=== PATIENT | male | born 1985 | race Caucasian/White ===

== ENCOUNTER 2016-05-26 09:16 | Observation (INO) | payer OTHER ==
[2016-05-26] VITALS (26 sets, daily range): BP systolic 85–117; BP diastolic 51–87; PULSE 76–104; RESP 12–24; TEMP 97.8–97.9; O2SAT 95–100; Ht 182.9 cm; Wt 72.4 kg
[~2016-05-26] VITALS: Ht 182.9 cm; Wt 72.4 kg
[~2016-05-26 09:16] MED LIST: AMOX500T2 PO; BUSP7.5T7 PO; ESCI20TA PO; HYDR25TA85 PO; SULF1TAB42 PO
--- OUTSIDE RECORDS SUMMARY | 2016-05-26 09:19 | XMS REPORT | Continuity of Care Document ---
Author Author [facility] Organization [facility] Address Unknown Phone Unavailable Support Name Relationship Address Phone ERNESTO HAINES MD Caregiver [address] [address] Unavailable GREG STEVENS MD Caregiver [address] [place] [address] Unavailable MARTHAWINIFRED Yanez Next Of Kin [address] [place] [address] C Insurance Providers Guarantor Doc Thomas Address [address] [place] [id number] C Email [id number] Payer [employer] Ppo/Open Choice Policy Number [id number] Subscriber's Name Doc Thomas Relationship 01 Spouse Group Number [id number] Advance Directives Directive Response Recorded Date/Time Advanced Directives Type None 03/05/16 10:07am Chief Complaint and Reason for Visit Chief Complaint Psychiatric Problems Reason for Visit 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 abuse [id number] Problems Active Problems Medical Problem Onset Date Status PHARYNGITIS Unknown Acute Past Problems Medical Problem Onset Date Dehydration, mild Unknown Drug-induced psychotic disorder with delusions Unknown Methamphetamine abuse Unknown PHARYNGITIS Unknown PHARYNGITIS Unknown Vertigo, benign positional Unknown Medications Current Home Medications Medication Dose Units Route Directions Days Qty Instructions Start Date Amoxicillin 500 Mg Tablet 500 Mg Oral Three Times A Day 10 Days Buspirone Hcl 7.5 Mg Tablet 7.5 Mg Oral Twice A Day 03/05/16 Escitalopram Oxalate (Lexapro) 20 Mg Tablet 20 Mg Oral Daily Hydroxyzine Hcl 25 Mg Tablet 25 Mg Oral 3-4 Times Daily as needed for Anxiety 03/05/16 Sulfamethoxazole/Trimethoprim (Bactrim Ds Tablet) 1 Each Tablet 1 Tab Oral Daily 03/05/16 Social History Social History Problem Response Recorded Date/Time Onset Date Status Chewing Tobacco Status No 03/05/2016 10:48am Not Applicable Not Applicable Hx Substance Use Y COCAINE AND METH 03/05/2016 10:48am Not Applicable Not Applicable Hx Alcohol Use No 03/05/2016 10:48am Not Applicable Not Applicable Query Response Start Date Stop Date Smoking Status Current every day smoker Hospital Discharge Instructions No hospital discharge instructions. Plan of Care Discharge Date 03/05/16 1:10pm Disposition 65 TO PSYCH HOSP/UNIT Condition at Discharge Stable Instructions/Education Provided Drug Abuse and Drug Addiction Prescriptions See Medication Section Referrals ERNESTO HAINES MD Address: [address] [place] [address] [place] [address] Functional Status No functional status results. Allergies, Adverse Reactions, Alerts No known allergies. Immunizations Query Response on File Recorded Date/Time Hx Influenza Vaccination No 02/20/13 2:40pm Hx Influenza Vaccination No 02/20/13 2:40pm Vital Signs Acute Vital Signs Vital Response Date/Time Temperature (Fahrenheit) 99.9 deg F (96.8 - 99.1) 03/05/2016 1:00pm Temperature (Calculated Celsius) 37.18175 degrees C (36.0 - 37.3) 03/05/2016 1:00pm Pulse Rate (adult) 112 bpm (60 - 100) 03/05/2016 1:00pm Respiratory Rate 20 breaths/min (10 - 20) 03/05/2016 1:00pm O2 Sat by Pulse Oximetry 97 % (90 - 100) 03/05/2016 1:00pm Blood Pressure 122/68 mm Hg 03/05/2016 1:00pm Height (Feet) 5 feet 03/05/2016 10:07am Height (Inches) 11.00 inches 03/05/2016 10:07am Weight (Kilograms) 74.500 kg 03/05/2016 10:07am Body Mass Index (BMI) 22.0 03/05/2016 10:07am Results Laboratory Results Test Name Result Units Flags Reference Collection Date/Time Result Date/ Time Comments White Blood Count 22.4 T/MM3 H 4.5-11.0 03/05/2016 10:54am 03/05/2016 11 :13am Red Blood Count 4.22 M/MM3 L 4.50-5.90 03/05/2016 10:54am 03/05/2016 11: 13am Hemoglobin 13.3 GM/DL L 13.5-17.5 03/05/2016 10:54am 03/05/2016 11:13am Hematocrit 39.2 % L 41-53 03/05/2016 10:54am 03/05/2016 11:13am Mean Corpuscular Volume 92.9 UM3 80-100 03/05/2016 10:54am 03/05/2016 11:13am Mean Corpuscular Hemoglobin 31.5 UUG 26-34 03/05/2016 10:54am 2016 11:13am Mean Corpuscular Hemoglobin Concent 33.9 GM/DL 31-37 03/05/2016 10:54am 03/05/2016 11:13am RDW Standard Deviation 40.5 FL 36.9-50.2 03/05/2016 10:54am 03/05/2016 11:13am Platelet Count 277 T/MM3 130-400 03/05/2016 10:54am 03/05/2016 11:13am Mean Platelet Volume 10.1 UM3 9.4-12.4 03/05/2016 10:54am 03/05/2016 11 :13am Neutrophils % (Manual) 78.0 % H 33-66 03/05/2016 10:54am 03/05/2016 11: 32am Band Neutrophils % 5.0 % 0-6 03/05/2016 10:54am 03/05/2016 11:32am Lymphocytes % (Manual) 9.0 % L 23-45 03/05/2016 10:54am 03/05/2016 11: 32am Monocytes % (Manual) 6.0 % 0-9.0 03/05/2016 10:54am 03/05/2016 11:32am Reactive Lymphocytes % 2.0 % H 0-0 03/05/2016 10:54am 03/05/2016 11: 32am Band Neutrophils # 1.1 T/MM3 03/05/2016 10:54am 03/05/2016 11:32am Absolute Neutrophils (Manual) 17.5 T/MM3 H 1.8-7.7 03/05/2016 10:54am 11:32am Lymphocytes # (Manual) 2.0 T/MM3 1-4.8 03/05/2016 10:54am 03/05/2016 11 :32am Monocytes # (Manual) 1.3 T/MM3 H 0-0.8 03/05/2016 10:54am 03/05/2016 11: 32am Reactive Lymphocytes # 0.4 T/MM3 H 0-0 03/05/2016 10:54am 03/05/2016 11: 32am Red Cell Morphology Comment NORMAL 03/05/2016 10:54am 03/05/2016 11 :32am Icterus Index < 2 0-7 03/05/2016 10:54am 03/05/2016 11:11am Chemistry Specimen Hemolysis < 15 0-25 03/05/2016 10:54am 03/05/2016 11:11am 0-25: Specimen Exhibited No Hemolysis. Turbidity < 20 0-20 03/05/2016 10:54am 03/05/2016 11:11am Sodium Level 141 MEQ/L 134-144 03/05/2016 10:54am 03/05/2016 11:16am Potassium Level 3.5 MEQ/L L 3.6-5 03/05/2016 10:54am 03/05/2016 11:16am Chloride Level 103 MEQ/L 98-107 03/05/2016 10:54am 03/05/2016 11:16am Carbon Dioxide Level 27 MEQ/L 22-30 03/05/2016 10:54am 03/05/2016 11: 16am Anion Gap 11 MEQ/L 5-15 03/05/2016 10:54am 03/05/2016 11:16am Blood Urea Nitrogen 14.0 MG/DL 9-20 03/05/2016 10:54am 03/05/2016 11: 16am Creatinine 0.8 MG/DL 0.8-1.5 03/05/2016 10:54am 03/05/2016 11:16am BUN/Creatinine Ratio 18 RATIO 6-26 03/05/2016 10:54am 03/05/2016 11: 16am Glomerular Filtration Rate Calc 112 03/05/2016 10:54am 03/05/2016 11:16am Glucose Level 119 MG/DL H 75-110 03/05/2016 10:54am 03/05/2016 11:16am Calculated Osmolality 273 MOSM/KG 261-280 03/05/2016 10:54am 2016 11:16am Calcium Level 9.5 MG/DL 8.4-10.2 03/05/2016 10:54am 03/05/2016 11:16am Total Bilirubin 0.50 MG/DL 0.20-1.30 03/05/2016 10:54am 03/05/2016 11: 16am Alkaline Phosphatase 69 U/L 38-126 03/05/2016 10:54am 03/05/2016 11: 16am Total Protein 7.2 G/DL 6.3-8.2 03/05/2016 10:54am 03/05/2016 11:16am Albumin 4.1 G/DL 3.5-5.0 03/05/2016 10:54am 03/05/2016 11:16am Globulin 3.1 G/DL 2.4-3.6 03/05/2016 10:54am 03/05/2016 11:16am Albumin/Globulin Ratio 1.3 RATIO 1.1-2.2 03/05/2016 10:54am 03/05/2016 11:16am Aspartate Amino Transf (AST/SGOT) 15 U/L L 17-59 03/05/2016 10:54am 11:16am Alanine Aminotransferase (ALT/SGPT) 23 U/L 21-72 03/05/2016 10:54am 11:16am Acetaminophen Level < 10 UG/ML L 10-30 03/05/2016 10:54am 03/05/2016 11: 16am TOXIC <4 HR POST INGESTION: >150 MG/L; TOXIC <12 HR POST INGESTION: >50 MG/L Salicylates Level < 1.0 MG/DL L 2-20 03/05/2016 10:54am 03/05/2016 11: 16am Alcohol, Quantitative <10 MG/DL <10 03/05/2016 10:54am 03/05/2016 11: 16am Thyroid Stimulating Hormone (TSH) 0.24 MIU/L L 0.47-4.68 03/05/2016 10: 54am 03/05/2016 12:12pm Influenza Type A Antigen NEGATIVE NEGATIVE 03/05/2016 10:55am 2016 11:28am Negative for Flu A protein antigen. Assay sensitivity is 90%. Influenza Type B Antigen NEGATIVE NEGATIVE 03/05/2016 10:55am 2016 11:28am Negative for Flu B protein antigen. Assay sensitivity is 90%. Urine Collection Type VOIDED-NOT CC-MIDSTR 03/05/2016 11:00am 03/05 11:12am Urine Color YELLOW YELLOW 03/05/2016 11:00am 03/05/2016 11:12am Urine Turbidity CLEAR CLEAR 03/05/2016 11:00am 03/05/2016 11:12am Urine Specific [place] 1.025 1.015-1.025 03/05/2016 11:00am 2016 11:12am Urine pH 6.5 5.0-8.0 03/05/2016 11:00am 03/05/2016 11:12am Urine Leukocyte Esterase NEGATIVE NEGATIVE 03/05/2016 11:00am 2016 11:12am Urine Nitrite NEGATIVE NEGATIVE 03/05/2016 11:00am 03/05/2016 11: 12am Urine Protein TRACE A NEGATIVE 03/05/2016 11:00am 03/05/2016 11:12am Urine Glucose (UA) NEGATIVE NEGATIVE 03/05/2016 11:00am 03/05/2016 11 :12am Urine Ketones 3+ A NEGATIVE 03/05/2016 11:00am 03/05/2016 11:12am Urine Urobilinogen 0.2 EU/DL NORMAL 03/05/2016 11:00am 03/05/2016 11: 12am Urine Bilirubin 1+ A NEGATIVE 03/05/2016 11:00am 03/05/2016 11:12am Urine Blood TRACE-INTACT A NEGATIVE 03/05/2016 11:00am 03/05/2016 11: 12am Urinalysis Comment MICROSCOPIC NOT IND. 03/05/2016 11:00am 2016 11:12am Procedures No known history of procedures. Encounters Encounter Location Arrival/Admit Date Discharge/Depart Date Attending Provider Departed Emergency Room [facility] 03/05/16 10:05am 03/05/16 1: 10pm GREG STEVENS MD Recent Diagnosis
--- OUTSIDE RECORDS SUMMARY | 2016-05-26 09:19 | XMS REPORT | Continuity of Care Document ---
Author Author [facility] Organization [facility] Address Unknown Phone Unavailable Allergies Medications Problems Procedures Results Test Result Range CBC - 04/29/16 06:45 Hemoglobin-Blood 15.2 g-dL 11.00 - 18.00 Hematocrit-Blood 46.1 % 35.0 - 55.0 Leukocytes [count] 10.90 [id number] 4.00 - 11.00 Erythrocytes [count] 4.90 r98-6-pyA 4.00 - 6.20 Erythrocyte MCV 94.1 fL 80 - 100 Erythrocyte MCH 31.0 pg 26.0 - 34.0 Erythrocyte MCHC 33.0 g/dL 32.0 - 36.0 RDW-CV 12.6 % 10.5 - 14.0 Platelets 331 [id number] 150.00 - 400.00 MPV 10.3 fL 8.50 - 11.50 Neutrophils [Pct] 45.6 % 50 - 80 Lymphocytes [Pct] 44.1 % 25 - 50 Monocytes [Pct] 7.8 % 2 - 12 Eosinophils [Pct] 2.2 % 0 - 5 Basophils [Pct] 0.3 % 0 - 2 [place] Profile - 04/29/16 06:45 Sodium 142 mmol/L 135 - 152 Potassium 4.38 mmol/L 3.5 - 5.3 Chloride 100.8 mmol/L 100 - 116 Carbon Dioxide 29 mmol/L 18 - 29 Glucose 99 mg/dL 70 - 110 Urea Nitrogen (BUN) 15 mg/dL 7 - 25 Creatinine 0.74 mg/dL 0.6 - 1.3 Calcium 9.8 mg/dL 8.60 - 10.30 Albumin 4.5 g/dL 3.40 - 4.20 Protein, Total 7.7 g/dL 5.00 - 12.00 AST-Serum 14 IU/L 10.00 - 45.00 ALT-Serum 13 IU/L 10.00 - 25.00 Bilirubin,Total 0.3 mg/dL 0.30 - 1.00 Alkaline Phosphatase 82 IU/L 53.00 - 128.00 Total Cholesterol-Serum 155 mg/dL 136 - 200 Triglycerides 118 mg/dL 10.00 - 200.00 AGE (yrs) 31 NRG GGT 21 IU/L 9.00 - 64.00 Lactate Dehydrogenase (LDH) 124 IU/L 91 - 270 Phosphorus 3.8 mg/dL 2.50 - 5.00 Uric Acid 5.3 mg/dL 3.30 - 8.70 eGFR/1.73 sq M, black female 109 UNIT NRG eGFR/1.73 sq M, black male 147 UNIT NRG eGFR/1.73 sq M, white female 90 UNIT NRG eGFR/1.73 sq M, white male 122 UNIT NRG Urine Dipstick - 04/29/16 06:45 Color of Urine Yellow Straw,Yellow Clarity of Urine Clear Clear Specific gravity of Urine 1.015 1.005- 1.030 pH of Urine by Test strip 5.5 Normal 5 - 8 Protein, Test Strip-Urine Negative Negative Glucose Strip Test-Urine Negative Negative Leukocyte esterase [Qual] Negative Negative Ketones Strip Test-Serum Negative Negative Bilirubin [Qual] Negative Negative Urobilinogen- Urine Dipstick 0.2 E.U./dL <0.2,0.2 Red Blood Cells-Urine Dipstick Negative Negative Nitrite [Qual] Negative Negative Drugs of abuse 8 panel-Urine - 04/29/16 06:45 Amphetamines, Quantitative-Urine Positive Negative Barbiturates, Quantitative-Urine Negative Negative Benzodiazepines, Qualitative-Urine Negative Negative Tetrahydrocannabinol [Qual] Negative Negative Cocaine w/ Metabolites, Quantitative-Urine Negative Negative Alcohol (Ethanol), Quantitative-Urine Negative Negative Opiates, Quantitative-Urine Negative Negative Phencyclidine, Quantitative-Urine Negative Negative Encounters ACCT No. Visit Date/Time Discharge Status Pt. Type Provider Facility Loc./Unit Complaint [id number] 04/29/2016 13:00:00 04/29/2016 21:00:00 DIS BRANDON GRASIA [facility] OT [id number] 04/29/2016 07:22:00 04/29/2016 08:22:00 DIS DILIP CHÁVEZ [facility] OT
[2016-05-26] MEDS ORDERED: MECL-103 PO (09:23)
[2016-05-26] MEDS ORDERED: ARIP5TAB10 PO (09:23)
--- OUTSIDE RECORDS SUMMARY | 2016-05-26 09:30 | XMS REPORT | Continuity of Care Document ---
Author Author [facility] Organization [facility] Address Unknown Phone Unavailable Allergies Medications Problems Procedures Results Test Result Range CBC - 04/29/16 06:45 Hemoglobin-Blood 15.2 g-dL 11.00 - 18.00 Hematocrit-Blood 46.1 % 35.0 - 55.0 Leukocytes [count] 10.90 [id number] 4.00 - 11.00 Erythrocytes [count] 4.90 [id number] 4.00 - 6.20 Erythrocyte MCV 94.1 fL 80 - 100 Erythrocyte MCH 31.0 pg 26.0 - 34.0 Erythrocyte MCHC 33.0 g/dL 32.0 - 36.0 RDW-CV 12.6 % 10.5 - 14.0 Platelets 331 [id number] 150.00 - 400.00 MPV 10.3 fL 8.50 [...] Status Pt. Type Provider Facility Loc./Unit Complaint [id number] 04/29/2016 13:00:00 04/29/2016 21:00:00 DIS BRANDON GARSIA [facility] OT [id number] 04/29/2016 07:22:00 04/29/2016 08:22:00 DIS DILIP CHÁVEZ [facility] OT
--- NOTE | 2016-05-26 09:38 | NUR ---
PROVIDER DR HOOK AT BEDSIDE FOR H&P
[2016-05-26 09:40] LABS: BASOPHILS % (AUTO) 0.3 % (0-2); EOSINOPHILS # (AUTO) 0.2 T/MM3 (0-0.5); EOSINOPHILS % (AUTO) 1.6 % (0-4); HCT - HEMATOCRIT 40.1 % (41-53); HGB - HEMOGLOBIN 13.5 GM/DL (13.5-17.5); IMMATURE GRANULOCYTE # (AUTO) 0.02 T/MM3 (0.00-0.03); IMMATURE GRANULOCYTE % (AUTO) 0.2 % (0.0-0.5); LYMPHOCYTES # (AUTO) 3.8 T/MM3 (1-4.8); LYMPHOCYTES % (AUTO) 39.6 % (23-45); MEAN CORPUSCULAR HGB CONC(MCHC 33.7 GM/DL (31-37); MEAN PLATELET VOLUME 9.6 UM3 (9.4-12.4); MONOCYTES # (AUTO) 0.7 T/MM3 (0-0.8); MONOCYTES % (AUTO) 7.2 % (0-9.0); NEUTROPHILS #(AUTO)-ABSOLUTE 4.9 T/MM3 (1.8-7.7); NEUTROPHILS % (AUTO) 51.1 % (33-66); RED BLOOD COUNT 4.22 M/MM3 (4.50-5.90); WBC - WHITE BLOOD COUNT 9.5 T/MM3 (4.5-11.0)
--- NOTE | 2016-05-26 09:45 | NUR ---
POISON CONTROL [facility] MAURITIAN POISON CONTROL CONTACTED Addendum: 05/26/16 at 0950 by [email or web address] CAIN PAREKH
[2016-05-26 09:53] LABS: ACETAMINOPHEN < 10 UG/ML (10-30); ALBUMIN/GLOBULIN RATIO 1.4 RATIO (1.1-2.2); ALKALINE PHOSPHATASE 65 U/L (38-126); ALT (SGPT) 27 U/L (21-72); ANION GAP 11 MEQ/L (5-15); AST (SGOT) 15 U/L (17-59); BUN/CREATININE RATIO 12 RATIO (6-26); CALCIUM 9.5 MG/DL (8.4-10.2); CHLORIDE 106 MEQ/L (98-107); CO2 - CARBON DIOXIDE 27 MEQ/L (22-30); CREATININE 0.9 MG/DL (0.8-1.5); ETHANOL <10 MG/DL (<10); GLOMERULAR FILTRATION RATE 97; GLUCOSE 135 MG/DL (75-110); POTASSIUM 3.4 MEQ/L (3.6-5); SALICYLATE < 1.0 MG/DL (2-20); SODIUM 144 MEQ/L (134-144); TOTAL PROTEIN 6.9 G/DL (6.3-8.2)
--- NOTE | 2016-05-26 10:06 | ERPDOC ---
Departure Disposition Decision Date: May 26, 2016 Disposition Decision Time: 10:50 Disposition: 02 TO [facility] Impression Impression Impression: Primary Impression: Methamphetamine abuse Additional Impressions: Suicide attempt Depression Depression Type: major depressive disorder Major depression recurrence: recurrent Active/Remission status: currently active Major depression episode severity: severe Psychotic features: without psychotic features Qualified Codes: F33.2 - Major depressive disorder, recurrent severe without psychotic features Severity: Severe Condition: Improved Seen By: Physician only Referrals: ERNESTO HAINES MD (Family) Problems/Meds/Labs Reviewed?: Yes Medications reviewed and manag: Yes Follow up care ordered?: Yes Mental Status: Alert, Oriented HPI - General Medical General Chief Complaint: Suicide Ideation/Attempt Stated Complaint: OVERDOSE Time Seen by Provider: 09:20 Source: patient, family, police HPI - General Medical Initial Comments 31-year-old male presents to the emergency department following a suicide attempt earlier today. At approximately 8:50 AM the patient took 20 of his 5 mg Abilify tablets along with 20 of his 25 mg meclizine tablets. Patient denies any pain or discomfort. Patient presents to the emergency department via EMS. He should was given activated charcoal by EMS in the field. Patient is currently asymptomatic other than slightly tired. Patient denies any other complaints or associated symptoms. Patient was at home when the symptoms began. Symptoms have been persistent in nature since onset. Patient denies any other complaints or associated symptoms. Patient states that the reason behind the suicide attempt was that his has filed for divorce. He denies homicidal ideation or plan. He denies any other form of self harm or self injury. Occurred At: home Onset: Rapid Allergies: Coded Allergies: No Known Allergies (Unverified , 05/26/16) Past History Past Medical History Respiratory: asthma Male: kidney stones Psychological: drug abuse Surgical History General: appendix Joint: shoulder Family History Family PMH: FOUND: cancer Vaccines Hx Influenza Vaccination: No Social History # of Packs/Tins per Day: 2.0 # of Years: 18 Second Hand Exposure: Yes Substance Use Type: does not use Alcohol Intake: none Review of Systems Constitutional Constitutional: DENIES: chills, fever Eyes General: DENIES: erythema, pain Lids/Accessories: DENIES: erythema, swelling Vision: DENIES: acuity, blurring ENMT Ears: DENIES: drainage, pain Hearing: DENIES: hearing loss Balance: DENIES: ataxia, falling to one side Sinuses: DENIES: congestion, pain Nose: DENIES: nosebleeds, pain Mouth/Throat: DENIES: painful swallowing, sore throat Teeth: DENIES: pain Jaw: DENIES: pain Cardiovascular Cardiac: DENIES: chest pain, dyspnea on exertion Rhythm/Rate: DENIES: irregular beat, palpitations Vascular: DENIES: pedal edema, unilateral swelling Pulmonary Respiratory: DENIES: cough, dyspnea, pleuritic chest pain, sputum GI Upper Abdomen: DENIES: nausea, pain, vomiting Lower Abdomen: DENIES: diarrhea, pain General: DENIES: dysuria, pain Musculoskeletal General: DENIES: cramps, pain Integumentary Skin: DENIES: itching, rash Neurological General: DENIES: headache, numbness, weakness Psychiatric Psychiatric: depression, emotional instability, suicidal ideation/attempt Endocrine Endocrine: DENIES: polydipsia, polyphagia Hematologic/Lymphatic Hematologic/Lymphatic: DENIES: frequent nosebleeds, lymphadenopathy Allergic/Immunological Allergic/Immunoligical: DENIES: allergic reactions, hives Physical Exam General General Nourishment: well nourished, well developed, appears stated age, no acute distress, adult General Body Habitus: well groomed Vitals and Pain First Documented Vital Signs Date Time Temp Pulse Resp B/P Pulse Ox O2 Delivery O2 Flow Rate FiO2 05/26/16 09:18 97.8 86 20 124/81 100 Room Air Weight: Kilograms: 73.200 Height (feet): 5 Height (inches): 11.00 Triage Pain Scale: RN VS reviewed by Provider: Yes Normal Exams: Head: Normocephalic w/o trauma Eyes: Pupils are PERRLA w/ EOMI, No scleral icterus, irritation, or foreign bodies noted ENMT: No facial trauma, nasal exudates, pharyngeal erythema, or exudates are noted Dental: No fractured, loose, or missing teeth noted Neck: Full range of motion, without adenopathy, JVD, bruits or thyromegaly Chest/Resp: Clear all sutton, with good airflow, and symmetry bilaterally CV: Regular rate and rhythm, without murmur or gallop, Pulses 2+ all extremities, capillary refill, <2 seconds all ext., no pedal edema noted Abdomen: Bowel sounds positive, soft, non-tender, non-distended, no hepatosplenomegaly, masses or bruits noted Lymphatic: No lymphadenopathy, or lymphedema noted Musculoskeletal: No tenderness, or deformity noted, good range of motion, all extremities Integumentary: No rashes, hives, or bruising noted, hair and nails, without abnormality Neurologic: Patient is alert, and oriented, cranial nerves, motor/sensory/ cerebellar, exams w/o gross deficits, to observation Psychiatric: Patient exhibits, appropriate attention, emotion and affect Differential Diagnoses Considering: Alcohol Intoxication, Depression, Drug Overdose, Metabolic Progress Results/Orders Orders Procedure Category Date Status Time Cbc W/Auto LAB 05/26/16 Complete Diff-Reflex Manual Cmp - Comprehensive LAB 05/26/16 Complete Metabolic Ethanol LAB 05/26/16 Complete Salicylate LAB 05/26/16 Complete Acetaminophen LAB 05/26/16 Complete Ua, Dip Wreflex LAB 05/26/16 Complete [employer] Management Specialist 09:21 Drug Screen LAB 05/26/16 Complete Urine-Test At [facility] 09:21 EKG EKG 05/26/16 Taken Lab Results Laboratory Tests Test 05/26/16 09:35 White Blood Count 9.5T/MM3 Red Blood Count 4.22M/MM3 Hemoglobin 13.5GM/DL Hematocrit 40.1% Mean Corpuscular Volume 95.0UM3 Mean Corpuscular Hemoglobin 32.0UUG Mean Corpuscular Hemoglobin Concent 33.7GM/DL RDW Standard Deviation 43.0FL Platelet Count 275T/MM3 Mean Platelet Volume 9.6UM3 Immature Granulocyte % (Auto) 0.2% Neutrophils (%) (Auto) 51.1% Lymphocytes (%) (Auto) 39.6% Monocytes (%) (Auto) 7.2% Eosinophils (%) (Auto) 1.6% Basophils (%) (Auto) 0.3% Absolute Immature Granulocyte (auto 0.02T/MM3 Absolute Neutrophils (auto) 4.9T/MM3 Absolute Lymphocytes (auto) 3.8T/MM3 Absolute Monocytes (auto) 0.7T/MM3 Absolute Eosinophils (auto) 0.2T/MM3 Absolute Basophils (auto) 0.0T/MM3 Turbidity < 20 Sodium Level 144MEQ/L Potassium Level 3.4MEQ/L Chloride Level 106MEQ/L Carbon Dioxide Level 27MEQ/L Anion Gap 11MEQ/L Blood Urea Nitrogen 11.0MG/DL Creatinine 0.9MG/DL Glomerular Filtration Rate Calc 97 BUN/Creatinine Ratio 12RATIO Glucose Level 135MG/DL Calculated Osmolality 278MOSM/KG Calcium Level 9.5MG/DL Total Bilirubin 0.70MG/DL Icterus Index < 2 Aspartate Amino Transf (AST/SGOT) 15U/L Alanine Aminotransferase (ALT/SGPT) 27U/L Alkaline Phosphatase 65U/L Total Protein 6.9G/DL Albumin 4.0G/DL Globulin 2.9G/DL Albumin/Globulin Ratio 1.4RATIO Chemistry Specimen Hemolysis < 15 Salicylates Level < 1.0MG/DL Acetaminophen Level < 10UG/ML Alcohol, Quantitative <10MG/DL Progress Progress Labs are discussed in detail with the patient and questions are answered. Patient is given 1 L normal saline intravenously in the emergency Department. Patient is given a 2nd liter after his blood pressure dips in the ED 90 systolic. Patient is admitted to the CCU in improved condition with suicide precautions. Patient is in agreement with the current plan of management. Patient is admitted to the hospital in improved condition. Patient is to follow up as instructed. Patient is discussed with poison control and recommendations are followed. Patient is in agreement with the current plan of management. EKG EKG : Rate: 60-100 Rhythm: sinus [place]: normal QRS: normal Intervals: normal ST/T: normal Interpreted by: signing physician BETTEY HOOK DO May 26, 2016 10:06
[2016-05-26] MEDS: 1/2 NS IV SCH ×2 (11:00→12:10)
[2016-05-26] MEDS: D5 IV SCH ×2 (11:00→12:10)
[2016-05-26] MEDS: POTASSIUM CHLORIDE IV SCH ×2 (11:00→12:10)
--- NOTE | 2016-05-26 11:10 | NUR ---
IVF NORMAL SALINE STARTED WIDE OPEN PER DR HOOK FOR HYPOTENSION
--- OUTSIDE RECORDS SUMMARY | 2016-05-26 11:13 | XMS REPORT | Continuity of Care Document ---
Author Author [facility] Organization [facility] Address Unknown Phone Unavailable Allergies Medications Problems Procedures Results Test Result Range CBC - 04/29/16 06:45 Hemoglobin-Blood 15.2 g-dL 11.00 - 18.00 Hematocrit-Blood 46.1 % 35.0 - 55.0 Leukocytes [count] 10.90 [id number] 4.00 - 11.00 Erythrocytes [count] 4.90 g58-5-hqD 4.00 - 6.20 Erythrocyte MCV 94.1 fL 80 - 100 Erythrocyte MCH 31.0 pg 26.0 - 34.0 Erythrocyte MCHC 33.0 g/dL 32.0 - 36.0 RDW-CV 12.6 % 10.5 - 14.0 Platelets 331 [id number] 150.00 - 400.00 MPV 10.3 fL 8.50 [...] Status Pt. Type Provider Facility Loc./Unit Complaint [id number] 04/29/2016 13:00:00 04/29/2016 21:00:00 DIS BRANDON GARSIA [facility] OT [id number] 04/29/2016 07:22:00 04/29/2016 08:22:00 DIS DILIP CHÁVEZ [facility] OT
[2016-05-26] MEDS ORDERED: NORMAL SALINE 1,000 ML IV ONE (11:15)
--- NOTE | 2016-05-26 11:23 | NUR ---
PROVIDER IDALMIS GREEN APRN AT BEDSIDE
[2016-05-26 11:29] LABS: BLOOD, URINE NEGATIVE (NEGATIVE); COLOR,URINE YELLOW (YELLOW); LEUKOCYTE ESTERASE ,URINE NEGATIVE (NEGATIVE); NITRITE,URINE NEGATIVE (NEGATIVE); UROBILINOGEN,URINE 0.2 EU/DL (NORMAL)
--- NOTE | 2016-05-26 11:32 | NUR ---
REPORT REPORT GIVEN TO SAMIA JASMINE IN CCU
[2016-05-26 11:43] LABS: AMPHETAMINE SCREEN,URINE POSITIVE; BARBITURATE SCREEN,URINE NEGATIVE; BENZODIAZEPINES SCREEN,URINE NEGATIVE; CANNABINOID SCREEN,URINE NEGATIVE; COCAINE SCREEN,URINE NEGATIVE; METHADONE SCREEN, URINE NEGATIVE; METHAMPHETAMINE SCREEN, URINE POSITIVE; OPIATE SCREEN,URINE NEGATIVE; PHENCYCLIDINE SCREEN,URINE NEGATIVE; TRICYCLIC ANTIDEPRESSANT,URINE NEGATIVE
--- NOTE | 2016-05-26 11:50 | NUR ---
ADMIT PATIEN TAKEN TO CCU BED 6 PER CART, MONITORS IN PLACE, PATIENT STABLE. BELONGINGS WITH MOTHER.
--- NOTE | 2016-05-26 11:50 | NUR ---
ADMISSION TO CCU-6. PT HAS EYES CLOSED, OPENS EYES TO VERBAL COMMANDS. MOTHER IS AT BEDSIDE.
[2016-05-26] MEDS ORDERED: ONDANSETRON 4mg/2ml INJECTION IV PRN (12:00)
--- NOTE | 2016-05-26 12:05 | HPPDOC ---
IDALMIS GREEN CUSTOM SHOE DESIGNER AND MAKER 05/26/16 1150: HPI - Adult Date DATE: 05/26/16 TIME: 11:45 General Chief Complaint: Suicide Attempt History of Present Illness Doc Posada is a 31-year-old male who presented to [facility] emergency department by EMS after a suicide attempt by prescription overdose. He took 20 Abilify and 20 Meclizine tablets at approximately 08 50. History was obtained from the patient's mother, at the patient was lethargic and did not provide much verbal communication. She states that he started using methamphetamines again about 5 months ago for an unknown reason. He has a history of drug abuse, but after treatment at age 17, he only had a couple relapses. She has tried to take him to treatment a couple of times over the last few months, but has been unsuccessful. He is very labile on meth, and she states "we never know what he will do.". He has a history of manipulating, and according to his mother, he knows how to speak the language of psychiatrists and police officers to get out of trouble and to be released home. His mother noticed that over the last few days, he has been making morbid comments, but no overt suicidal statements. For example, she states that he has sent text messages such as "my family would be better off without me". She also reports that his recently filed for divorce. She recounts that this morning, the patient told his that he would go to treatment if she would cancel the divorce, but she refused. To her knowledge, he has never attempted to kill himself previously. He has a history of depression and anxiety, and is currently on disability seeking treatment from a therapist in [place]. The patient admits that he was in fact trying to kill himself. He also complains of some abdominal pain. He feels very tired, and does not communicate very much. In the emergency department, labs were obtained. CBC was unremarkable. Chemistries showed a mildly reduced potassium level at 3.4. Blood pressure initially was stable, but when I saw the patient in the ER, it was 89/66. He was receiving an IV fluid bolus. He received activated charcoal per EMS. Urine drug screen is pending. Dr. Roman was notified, and the patient was admitted to CCU for medical stabilization, suicide watch, and psychiatric consultation. Past Medical History Past Medical History Patient's Medical History: (1) Asthma (2) Kidney stones (3) Depression (4) Anxiety Surgical History Patient's Surgical History: Shoulder arthroscopy. Appendectomy Current Medications Home Meds Reported Medications Aripiprazole (Abilify) 5 Mg Tablet, 5 MG PO DAILY 05/26/16 Meclizine HCl (Meclizine HCl) 25 Mg Tablet, 25 MG PO PRN 05/26/16 Allergies: Coded Allergies: No Known Allergies (Unverified , 05/26/16) Family History Family History: Artane from mother. There is a family history of addiction. His grandfather was addicted to alcohol. The patient's father also had an addiction to drugs and alcohol, but has been clean for 30 years. Patient's mother and aunts and uncles have mild depression. Social History Smoking Status: Current every day smoker # of Packs/Tins per Day: 2.0 # of Years: 18 Second Hand Exposure: Yes Substance Use Type: methamphetamine Alcohol Intake: occasionally Marital Status: ( recently filed for divorce) Current Occupational Status: other (on short-term disability) Current Occupation: [employer] Review of Systems Constitutional: REPORTS: fatigue, DENIES: difficulty falling asleep, dizziness , fever, insomnia Eyes Vision: DENIES: vision changes ENMT Sinuses: NOT FOUND: rhinorrhea Cardiovascular DENIES: chest pain Vascular: DENIES: pedal edema Pulmonary Respiratory: DENIES: cough, dyspnea GI Upper Abdomen: pain, DENIES: nausea, vomiting General: DENIES: dysuria Musculoskeletal General: DENIES: joint pain Integumentary Skin: DENIES: rash Neurological General: see HPI, DENIES: headache Psychiatric Psychiatric: anxiety, depression, suicidal ideation/attempt Hematologic/Lymphatic DENIES: anemia Allergic/Immunological DENIES: frequent infections All Other Systems All Other Systems: Reviewed (remainder of 10-point ROS Neg.) Physical Exam General General Nourishment: well nourished, well developed, thin Vital Signs Vital Signs Date Time Temp Pulse Resp B/P Pulse Ox O2 Delivery O2 Flow Rate FiO2 05/26/16 09:18 97.8 86 20 124/81 100 Room Air Height (Feet): 5 Height (Inches): 11.00 Eyes Brief: FOUND: PERRL, NOT FOUND: scleral icterus ENMT Brief: FOUND: other (mouth is discolored from activated charcoal) Neck Brief: NOT FOUND: adenopathy, nuchal rigidity Respiratory Auscultation: FOUND: normal, NOT FOUND: rales, rhonchi, wheezes Cardiovascular Auscultation: FOUND: S1, S2, regular Peripheral Pulses: 2+: Dorasalis Pedis (L), Dorsalis Pedis (R), Posterior Tibial (L), Posterior Tibial (R), Radial (L), Radial (R) Edema: 0: Anasarca, Arm (L), Arm (R), Face, Leg (L), Leg (R) Abdomen Inspection: NOT FOUND: distention Palpation: FOUND: soft, tender (mild diffuse tenderness), NOT FOUND: involuntary guarding, voluntary guarding Auscultation: FOUND: hypoactive Lymphatic (brief) Lymphatic Brief: NOT FOUND: adenopathy Musculoskeletal (brief) Musculoskeletal Brief: NOT FOUND: deformity, tenderness Integumentary (brief) Integumentary Brief: FOUND: dry, warm Integumentary General: FOUND: dry, warm Color: FOUND: pink Neurologic GCS Eye Opening: (3)To Voice GCS Verbal: (5)Oriented GCS Motor: (6)Obeys Commands RN Documented GCS Total: 14 Psychiatric (brief) FOUND: oriented Laboratory Laboratory Tests Test 05/26/16 09:35 05/26/16 11:04 White Blood Count 9.5T/MM3 Red Blood Count 4.22M/MM3 Hemoglobin 13.5GM/DL Hematocrit 40.1% Mean Corpuscular Volume 95.0UM3 Mean Corpuscular Hemoglobin 32.0UUG Mean Corpuscular Hemoglobin Concent 33.7GM/DL RDW Standard Deviation 43.0FL Platelet Count 275T/MM3 Mean Platelet Volume 9.6UM3 Immature Granulocyte % (Auto) 0.2% Neutrophils (%) (Auto) 51.1% Lymphocytes (%) (Auto) 39.6% Monocytes (%) (Auto) 7.2% Eosinophils (%) (Auto) 1.6% Basophils (%) (Auto) 0.3% Absolute Immature Granulocyte (auto 0.02T/MM3 Absolute Neutrophils (auto) 4.9T/MM3 Absolute Lymphocytes (auto) 3.8T/MM3 Absolute Monocytes (auto) 0.7T/MM3 Absolute Eosinophils (auto) 0.2T/MM3 Absolute Basophils (auto) 0.0T/MM3 Turbidity < 20 Sodium Level 144MEQ/L Potassium Level 3.4MEQ/L Chloride Level 106MEQ/L Carbon Dioxide Level 27MEQ/L Anion Gap 11MEQ/L Blood Urea Nitrogen 11.0MG/DL Creatinine 0.9MG/DL Glomerular Filtration Rate Calc 97 BUN/Creatinine Ratio 12RATIO Glucose Level 135MG/DL Calculated Osmolality 278MOSM/KG Calcium Level 9.5MG/DL Total Bilirubin 0.70MG/DL Icterus Index < 2 Aspartate Amino Transf (AST/SGOT) 15U/L Alanine Aminotransferase (ALT/SGPT) 27U/L Alkaline Phosphatase 65U/L Total Protein 6.9G/DL Albumin 4.0G/DL Globulin 2.9G/DL Albumin/Globulin Ratio 1.4RATIO Chemistry Specimen Hemolysis < 15 Salicylates Level < 1.0MG/DL Acetaminophen Level < 10UG/ML Alcohol, Quantitative <10MG/DL Urine Collection Type Cleancatch-midstream Urine Color Yellow Urine Turbidity Clear Urine pH 6.0 Urine Specific [place] 1.010 Urine Protein Negative Urine Glucose (UA) Negative Urine Ketones Negative Urine Blood Negative Urine Nitrite Negative Urine Bilirubin Negative Urine Urobilinogen 0.2EU/DL Urine Leukocyte Esterase Negative Urinalysis Comment Microscopic not ind. Urine Opiates Screen NegativeNG/ML Urine Oxycodone Screen NegativeNG/ML Urine Methadone Screen NegativeNG/ML Urine Propoxyphene Screen NegativeNG/ML Urine Barbiturates Screen NegativeNG/ML Urine Tricyclic Antidepressants NegativeNG/ML Urine Phencyclidine Screen NegativeNG/ML Urine Amphetamines Screen PositiveNG/ML Urine Methamphetamines Screen PositiveNG/ML Urine Benzodiazepines Screen NegativeNG/ML Urine Cocaine Screen NegativeNG/ML Urine Cannabinoids Screen NegativeNG/ML Urine Drug Screen Confirmation Sent out Assessment & Plan Problems: (1) Suicide attempt Status: Acute Assessment & Plan: 20 Abilify and 20 Meclizine (2) Hypotension Status: Acute (3) Hypokalemia Status: Acute (4) Methamphetamine abuse Status: Acute (5) Depression Status: Chronic (6) Anxiety Status: Chronic Plan/Intensity of Service Admit to CCU for medical stabilization and suicide watch after suicide attempt via drug overdose. Start D5 half-normal saline with KCl at 100 mL per hour for hypotension and hypokalemia. UDS pending. Zofran PRN. Clear liquids; advance as able. Consult CM - mother voices interest in a dual-treatment facility (depression and drug use) if there's a local one. Will need to consult Psychiatry when stable. DVT Prophylaxis: SCD'S Code Status Full Code Hospital Course Summary Disclaimer The hospital course summary below is not to be considered part of the above Progress Note. Hospital Course Summary 05/26/16 Admit to CCU for medical stabilization and suicide watch after suicide attempt via drug overdose. Start D5 half-normal saline with KCl at 100 mL per hour for hypotension and hypokalemia. UDS pending. Zofran PRN. Clear liquids; advance as able. Consult CM - mother voices interest in a dual-treatment facility (depression and drug use) if there's a local one. Will need to consult Psychiatry when stable. HARRISON ROMAN MD 05/26/16 1426: Past Medical History Current Medications Home Meds Reported Medications Aripiprazole (Abilify) 5 Mg Tablet, 5 MG PO DAILY 05/26/16 Meclizine HCl (Meclizine HCl) 25 Mg Tablet, 25 MG PO PRN 05/26/16 Allergies: Coded Allergies: No Known Allergies (Unverified , 05/26/16) Assessment & Plan Problems: (1) Toxic encephalopathy Status: Acute Assessment & Plan: Secondary to Abilify and meclizine overdose. (2) Suicide attempt Status: Acute Assessment & Plan: 20 Abilify and 20 Meclizine (3) Hypotension Status: Acute (4) Hypokalemia Status: Acute Assessment & Plan: POA (5) Methamphetamine abuse Status: Acute (6) Depression Status: Chronic (7) Anxiety Status: Chronic Plan/Intensity of Service Have independently interviewed and examined pt. Chart reviewed. Case discussed with ED physician, pt's mother, and my CUSTOM SHOE DESIGNER AND MAKER. Care plan developed with my supervision; agree with above. Presents to ED via EMS secondary to lethargy post intensional drug overdose. Took Abilify and meclizine. Increased stressors. Pt in process of divorce. Mother reports he has been sleeping in his car for 3 day. She is not surprised he is positive for meth-worries has been using in the past several day. She does not think he has slept for 3 day. Currently, pt very somnolent. Will move spontaneously, but not waking to engage in conversation. Breathing well and maintaining airway. Lungs: decreased, no wheeze or distress CV: regular AB: soft flat NT/ND BD decreased MSE: somnolent Plan: OBS in CCU for close monitoring and suicide precautions. IVF for hydration and BP support. Monitor HR. Advance diet as pt able. Psych evaluation once encephalopathy clears. Monitor lab. IDALMIS GREEN C[employer]OM SH[employer] DES[employer]ER AND MAKER May 26, 2016 11:50 HARRISON ROMAN MD May 26, 2016 14:26
--- NOTE | 2016-05-26 12:58 | NUR ---
NEURO STATUS SLEEPY BUT DOES AWAKEN TO VOICE WHEN SPOKEN TO. ANSWERS APPROPRIATELY. WANTS TO LEFT ALONE. MOTHER WITH PT.
--- NOTE | 2016-05-26 13:30 | NUR ---
FAMILY MOTHER NOW STATES SHE HAS NO ISSUES WITH OTHER FAMILY MEMBERS GIVEN INFO ON PT. STATES DOES NOT NEED TO BE ON CONFIDENTIAL LIST. PT AGREED VERBALLY WITH THIS. CHANGED STATUS WITH REGISTRATION.
[2016-05-26] MEDS ORDERED: NORMAL SALINE 500 ML IV ONE (14:15)
[2016-05-26] MEDS ORDERED: MAG-AL + SIM LIQUID 30 ML UDC PO PRN (14:30)
[2016-05-26] MEDS ORDERED: ACETAMINOPHEN 325 MG TABLET PO PRN (14:30)
[2016-05-26] MEDS ORDERED: BISACODYL 10 MG SUPPOSITORY RECTALLY PRN (14:30)
[2016-05-26] MEDS ORDERED: NITROGLYCERIN 0.4 MG SUBLINGUAL TABLET SL PRN (14:30)
[2016-05-26] MEDS ORDERED: PRN ORDERS MC (14:30)
[2016-05-26] MEDS ORDERED: MILK OF MAGNESIA 30 ML SUSP PO PRN (14:30)
--- NOTE | 2016-05-26 15:18 | NUR ---
BRENDA THIS WORKER ALONG WITH SHRUTHI VISITED PT IN ROOM, NURSE, AND PT'S MOTHER WERE PRESENT WITH PT'S PERMISSION. THIS WORKER INTRODUCED SELF AND ROLE OF CASE MANAGEMENT. PT STATED HIS FILED FOR DIVORCE AND HE WOULDN'T BE ABLE TO STAY IN HOME. PT STATED HE FELT "OVERWHELMED OF LOSING EVERYTHING AND DOES NOT WANT TO LIVE". HE GRABBED PILLS IN THE KITCHEN OF HIS HOME WITH - WINIFRED PRESENT. WINIFRED TRIED TO STOP HIM FROM TAKING THE PILLS AND STATED HE "SHOVED HER BACKWARDS". WINIFRED WAS THE ONE THAT CALLED FOR PARAMEDICS. PT STATED HIS KIDS WERE AT DAYCARE AT THIS TIME. PT FEELS UPSET THAT HIS PLAN FAILED AND SAID THAT HE IS UPSET BECAUSE HE FEELS THAT HIS CHOICE WAS TAKEN FROM HIM. PT STATED HE HAS BEEN TO [place] IN FEBRUARY. THIS WORKER INQUIRED IF PT WOULD RETURN BACK, PT STATED HE WOULD POSSIBLY BUT WOULD NEVER WILLINGLY RETURN BACK TO [place]. THIS WORKER OFFERED IF PT WOULD LIKE TO GO TO A DRUG TREATMENT PROGRAM, PT STATED NO. PT STATED HE WAS PREVIOUSLY AT A DRUG TREATMENT PROGRAM BUT LEFT. THIS WORKER INQUIRED IF HE WOULD LIKE TO STOP USING METHAMPHETAMINES, PT STATED "YES AND NO, MAKES ME FEEL NORMAL". PT'S MOTHER STATED HER CONCERNS WITH PT NOT HAVING A PLACE TO LIVE AFTER HE DISCHARGES. PT'S MOTHER STATES HE IS NOT WORKING AT THE MOMENT AND DOES NOT HAVE FINANCES. SHE FELT IF PT HAS BEEN PLANNING THIS SUICIDE, DUE TO SELLING CLOTHES AND ITEMS. THIS WORKER UPDATED PT AND MOTHER, D/C PLAN IS PENDING AND WILL BE BASED ON DOCTOR'S RECOMMENDATIONS. THIS WORKER SPOKE WITH DR. ROMAN RE: PSYCH CONSULTATION. STATED HE WOULD ORDER THIS. Addendum: 05/26/16 at 1540 by MARK COVARRUBIAS Amended: Flori added. Addendum: 05/26/16 at 1543 by CANDACE COVARRUBIAS THIS WORKER REVIEWED SECURITY CHECKER'S NOTE AND AGREE WITH IT.
--- NOTE | 2016-05-26 15:23 | NUR ---
Nutrition Risk R/T poor appetite >3 days while in the hospital Diet Order: Clear liquid Pt admitted today 05/26 therefore malnutrition screen is a false positive. RD available at ext [phone]
--- NOTE | 2016-05-26 15:44 | NUR ---
BRENDA THAPA SCORE IS 3. Addendum: 05/26/16 at 1544 by MARK COVARRUBIAS Amended: Links added.
--- NOTE | 2016-05-26 15:53 | NUR ---
Status Pt very lethargic, but awakens easily and answers questions appropriately. did visit for sometime with SW. Pt denies pain but c/o of some nausea. This RN offered something to help with nausea, but pt refused. VS (BP 104/70), On RA, has refused any oral intake, no void since admission from ER. Will continue to monitor.
--- NOTE | 2016-05-26 18:01 | NUR ---
BR Pt has attempted to void in urinal both in bed and sitting at edge of bed. Pt denies need to void. Requested to try eating/drinking something before "doing that catheter" again. Gave pt cup of water and broth along with some crackers. Will continue to monitor.
--- NOTE | 2016-05-26 18:44 | NUR ---
Bladder Scan Bladder scan showed 660 mls. Pt requests to try to void for 10 more minutes.
--- NOTE | 2016-05-26 20:00 | NUR ---
Intake Pt eats broth at this time. Pt states he doesn't feel nauseated and is hungry. Diet advanced to regular and pt eats turkey sandwiches, chips, pudding, ice cream.
--- NOTE | 2016-05-26 20:19 | NUR ---
Interaction Pt states he has had a plan to hurt himself for the last 48 hours. Pt states he doesn't feel like hurting himself "at the moment". Pt states he has had depression "off and on" for years.
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
[2016-05-27] VITALS (16 sets, daily range): BP systolic 96–121; BP diastolic 53–80; PULSE 86–110; RESP 13–23; TEMP 97.6–98.9; O2SAT 96–100
[2016-05-27] MEDS: D5 IV SCH (00:13)
[2016-05-27] MEDS: POTASSIUM CHLORIDE IV SCH (00:13)
[2016-05-27] MEDS: 1/2 NS IV SCH (00:13)
--- NOTE | 2016-05-27 04:20 | NUR ---
[facility]Poison Control calls for update. Relayed current vitals, awakens easily, but falls asleep quickly. Relayed current fluids infusing.
--- NOTE | 2016-05-27 04:37 | NUR ---
Urination Pt up to urinate at this time. Pt a little unsteady on his feet. Pt urinates 400 cc strong, cloudy, straw urine.
--- NOTE | 2016-05-27 05:17 | NUR ---
Status Pt slept soundly throughout night. Pt more wakeful this am. Pt would easily awaken during night, but would quickly fall back asleep. Pt alert and oriented, and cooperative during night. Pt denies pain, SOA, nausea. Close observation throughout night for suicide attempts (none noted). Pt up with assist of 1 to void during night. Pt HR noted to be 80's to 120 during night (mostly 90's to low 100's). Pt SBP 90's to 110's during night. Pt eats well during night.Pt remains on RA with sats stable in 90's. Bed alarm on, will continue to monitor.
[2016-05-27 05:20] LABS: BASOPHILS # (AUTO) 0.1 T/MM3 (0-0.2); BASOPHILS % (AUTO) 0.5 % (0-2); EOSINOPHILS # (AUTO) 0.2 T/MM3 (0-0.5); EOSINOPHILS % (AUTO) 1.7 % (0-4); HCT - HEMATOCRIT 38.8 % (41-53); HGB - HEMOGLOBIN 12.8 GM/DL (13.5-17.5); IMMATURE GRANULOCYTE # (AUTO) 0.01 T/MM3 (0.00-0.03); IMMATURE GRANULOCYTE % (AUTO) 0.1 % (0.0-0.5); LYMPHOCYTES # (AUTO) 4.1 T/MM3 (1-4.8); LYMPHOCYTES % (AUTO) 41.4 % (23-45); MEAN PLATELET VOLUME 10.2 UM3 (9.4-12.4); MONOCYTES # (AUTO) 0.6 T/MM3 (0-0.8); MONOCYTES % (AUTO) 6.2 % (0-9.0); NEUTROPHILS % (AUTO) 50.1 % (33-66)
[2016-05-27 05:40] LABS: ALBUMIN 3.4 G/DL (3.5-5.0); ALBUMIN/GLOBULIN RATIO 1.4 RATIO (1.1-2.2); ALKALINE PHOSPHATASE 55 U/L (38-126); ALT (SGPT) 25 U/L (21-72); ANION GAP 7 MEQ/L (5-15); AST (SGOT) 12 U/L (17-59); BUN/CREATININE RATIO 12 RATIO (6-26); CALCIUM 9.4 MG/DL (8.4-10.2); CHLORIDE 110 MEQ/L (98-107); CO2 - CARBON DIOXIDE 29 MEQ/L (22-30); CREATININE 0.9 MG/DL (0.8-1.5); GLOMERULAR FILTRATION RATE 97; GLUCOSE 102 MG/DL (75-110); POTASSIUM 4.4 MEQ/L (3.6-5); SODIUM 146 MEQ/L (134-144); TOTAL PROTEIN 5.9 G/DL (6.3-8.2)
--- NOTE | 2016-05-27 08:54 | NUR ---
Physician Notification Patient requests Dr Crandall be notified of his admission. Voicemail notification was left. She is out of the office today.
[2016-05-27] MEDS ORDERED: NICOTINE 21 MG PATCH TD SCH (09:00)
[2016-05-27] MEDS ORDERED: NICOTINE PATCH REMOVAL TD SCH (09:00)
--- NOTE | 2016-05-27 09:20 | PNPDOC ---
Progress Note Date 05/27/16 Rafita was seen in his room this morning. He has no complaints except his IV site in his right wrist is painful. He denies any other pain. He denies shortness of breath or nausea. He is urinating without difficulty. He has been up walking in the room without lightheadedness or shortness of breath. He complains of feeling a little anxious. He states he slept okay last night. He ate 2 servings of breakfast this morning. He ate supper last night without difficulties. On exam heart rate is 100. Blood pressure is 97/58. Oxygen saturation is 100% on room air. He is afebrile. GEN-alert, oriented, no acute distress HEENT-sclera anicteric NECK-supple CV-borderline tachycardic rate with irregular rhythm. Telemetry was reviewed and revealed no arrhythmias CHEST-to auscultation bilaterally ABD-soft, nontender, nondistended with positive bowel sounds -no Espinosa EXT-no edema NEURO-no focal deficits, no muscle rigidity. He is alert and oriented SKIN-warm and dry without rashes On CBC white count is 10, hemoglobin 12.8, platelets 281, normal differential Comprehensive metabolic is essentially normal other than sodium mildly elevated at 146. Impression Intentional overdose/suicide attempt of Abilify and meclizine Anxiety Borderline elevated heart rate-likely secondary to anxiety Depression Substance abuse Hypokalemia-resolved Plan Discontinue IV fluids I called and talked with [facility] poison control, which had been contacted yesterday regarding this patient. They stated that if he was medically stable at this time that despite Abilify having a long half-life he does not require continued monitoring on an inpatient status medically. I then called and talked with psychiatrist, Dr. Bojorquez. He recommended inpatient psychiatry transfer. I will call and talk with the social services specialist to help arrange transfer. Continue to monitor on suicide precautions. The patient may not leave AGAINST MEDICAL ADVICE. NICOLAS CUNNINGHAM MD May 27, 2016 09:20
--- NOTE | 2016-05-27 10:00 | NUR ---
STATUS COOPERATIVE, TALKS ABOUT FAMILY, CHILDREN. DENIES DISCOMFORT. VS STABLE.
--- NOTE | 2016-05-27 10:12 | NUR ---
CM THIS WORKER MET WITH PT ON THIS DATE. THIS WORKER INTRODUCED SELF AND ROLE OF CASE MANAGEMENT. PT WAS MADE AWARE OF INPATIENT TREATMENT RECOMMENDATION. PT CONSENTED TO REFERRALS TO [facility]. THIS WORKER SENT REFERRALS TO [facility]. [facility] ACCEPTED PT. PT WAS NOTIFIED OF THIS AND IN AGREEMENT WITH THIS PLAN. UPDATE TO PHYSICIAN AND UPDATE TO NURSE AT THIS TIME.
[2016-05-27] MEDS ORDERED: NICO1PAT16 TD (10:54)
[2016-05-27] MEDS ORDERED: ACET-2321 PO (10:54)
--- NOTE | 2016-05-27 11:07 | DSPDOC ---
General Date Date DATE: 05/27/16 TIME: 10:55 Attending Physician Trevor Sandhu MD Admitting Physician Trevor Sandhu MD Consulting Physician Mamadou Bojorquez MD Admitting Diagnosis Suicide Attempt, Polypharmacy OD Discharge Diagnosis Suicide attempt-with overdose of Abilify and meclizine, hypotension-resolved, hypokalemia-resolved, methamphetamine abuse, bipolar disorder, possible depression/anxiety Procedures none Laboratory Laboratory Tests Test 05/26/16 09:35 05/26/16 11:04 05/27/16 04:53 White Blood Count 9.5T/MM3 (4.5-11.0) 10.0T/MM3 (4.5-11.0) Red Blood Count 4.22M/MM3 (4.50-5.90) 4.00M/MM3 (4.50-5.90) Hemoglobin 13.5GM/DL (13.5-17.5) 12.8GM/DL (13.5-17.5) Hematocrit 40.1% (41-53) 38.8% (41-53) Mean Corpuscular Volume 95.0UM3 (80-100) 97.0UM3 (80-100) Mean Corpuscular Hemoglobin 32.0UUG (26-34) 32.0UUG (26-34) Mean Corpuscular Hemoglobin Concent 33.7GM/DL (31-37) 33.0GM/DL (31-37) RDW Standard Deviation 43.0FL (36.9-50.2) 44.7FL (36.9-50.2) Platelet Count 275T/MM3 (130-400) 281T/MM3 (130-400) Mean Platelet Volume 9.6UM3 (9.4-12.4) 10.2UM3 (9.4-12.4) Immature Granulocyte % (Auto) 0.2% (0.0-0.5) 0.1% (0.0-0.5) Neutrophils (%) (Auto) 51.1% (33-66) 50.1% (33-66) Lymphocytes (%) (Auto) 39.6% (23-45) 41.4% (23-45) Monocytes (%) (Auto) 7.2% (0-9.0) 6.2% (0-9.0) Eosinophils (%) (Auto) 1.6% (0-4) 1.7% (0-4) Basophils (%) (Auto) 0.3% (0-2) 0.5% (0-2) Absolute Immature Granulocyte (auto 0.02T/MM3 (0.00-0.03) 0.01T/MM3 (0.00-0.03) Absolute Neutrophils (auto) 4.9T/MM3 (1.8-7.7) 5.0T/MM3 (1.8-7.7) Absolute Lymphocytes (auto) 3.8T/MM3 (1-4.8) 4.1T/MM3 (1-4.8) Absolute Monocytes (auto) 0.7T/MM3 (0-0.8) 0.6T/MM3 (0-0.8) Absolute Eosinophils (auto) 0.2T/MM3 (0-0.5) 0.2T/MM3 (0-0.5) Absolute Basophils (auto) 0.0T/MM3 (0-0.2) 0.1T/MM3 (0-0.2) Turbidity < 20 (0-20) < 20 (0-20) Sodium Level 144MEQ/L (134-144) 146MEQ/L (134-144) Potassium Level 3.4MEQ/L (3.6-5) 4.4MEQ/L (3.6-5) Chloride Level 106MEQ/L (98-107) 110MEQ/L (98-107) Carbon Dioxide Level 27MEQ/L (22-30) 29MEQ/L (22-30) Anion Gap 11MEQ/L (5-15) 7MEQ/L (5-15) Blood Urea Nitrogen 11.0MG/DL (9-20) 11.0MG/DL (9-20) Creatinine 0.9MG/DL (0.8-1.5) 0.9MG/DL (0.8-1.5) Glomerular Filtration Rate Calc 97 97 BUN/Creatinine Ratio 12RATIO (6-26) 12RATIO (6-26) Glucose Level 135MG/DL (75-110) 102MG/DL (75-110) Calculated Osmolality 278MOSM/KG (261-280) 280MOSM/KG (261-280) Calcium Level 9.5MG/DL (8.4-10.2) 9.4MG/DL (8.4-10.2) Total Bilirubin 0.70MG/DL (0.20-1.30) 0.50MG/DL (0.20-1.30) Icterus Index < 2 (0-7) < 2 (0-7) Aspartate Amino Transf (AST/SGOT) 15U/L (17-59) 12U/L (17-59) Alanine Aminotransferase (ALT/SGPT) 27U/L (21-72) 25U/L (21-72) Alkaline Phosphatase 65U/L (38-126) 55U/L (38-126) Total Protein 6.9G/DL (6.3-8.2) 5.9G/DL (6.3-8.2) Albumin 4.0G/DL (3.5-5.0) 3.4G/DL (3.5-5.0) Globulin 2.9G/DL (2.4-3.6) 2.5G/DL (2.4-3.6) Albumin/Globulin Ratio 1.4RATIO (1.1-2.2) 1.4RATIO (1.1-2.2) Chemistry Specimen Hemolysis < 15 (0-25) < 15 (0-25) Salicylates Level < 1.0MG/DL (2-20) Acetaminophen Level < 10UG/ML (10-30) Alcohol, Quantitative <10MG/DL (<10) Urine Collection Type Cleancatch-midstream Urine Color Yellow (YELLOW) Urine Turbidity Clear (CLEAR) Urine pH 6.0 (5.0-8.0) Urine Specific [place] 1.010 (1.015-1.025) Urine Protein Negative (NEGATIVE) Urine Glucose (UA) Negative (NEGATIVE) Urine Ketones Negative (NEGATIVE) Urine Blood Negative (NEGATIVE) Urine Nitrite Negative (NEGATIVE) Urine Bilirubin Negative (NEGATIVE) Urine Urobilinogen 0.2EU/DL (NORMAL) Urine Leukocyte Esterase Negative (NEGATIVE) Urinalysis Comment Microscopic not ind. Urine Opiates Screen NegativeNG/ML Urine Oxycodone Screen NegativeNG/ML Urine Methadone Screen NegativeNG/ML Urine Propoxyphene Screen NegativeNG/ML Urine Barbiturates Screen NegativeNG/ML Urine Tricyclic Antidepressants NegativeNG/ML Urine Phencyclidine Screen NegativeNG/ML Urine Amphetamines Screen PositiveNG/ML Urine Methamphetamines Screen PositiveNG/ML Urine Benzodiazepines Screen NegativeNG/ML Urine Cocaine Screen NegativeNG/ML Urine Cannabinoids Screen NegativeNG/ML Urine Drug Screen Confirmation Sent out Magnesium Level 2.0MG/DL (1.6-2.3) Microbiology none Radiology none History of Present Illness Doc Posada is a 31-year-old male who presented to [facility] emergency department by EMS after a suicide attempt by prescription overdose. He took 20 Abilify and 20 Meclizine tablets at approximately 08 50. History was obtained from the patient's mother, at the patient was lethargic and did not provide much verbal communication. She states that he started using methamphetamines again about 5 months ago for an unknown reason. He has a history of drug abuse, but after treatment at age 17, he only had a couple relapses. She has tried to take him to treatment a couple of times over the last few months, but has been unsuccessful. He is very labile on meth, and she states "we never know what he will do.". He has a history of manipulating, and according to his mother, he knows how to speak the language of psychiatrists and police officers to get out of trouble and to be released home. His mother noticed that over the last few days, he has been making morbid comments, but no overt suicidal statements. For example, she states that he has sent text messages such as "my family would be better off without me". She also reports that his recently filed for divorce. She recounts that this morning, the patient told his that he would go to treatment if she would cancel the divorce, but she refused. To her knowledge, he has never attempted to kill himself previously. He has a history of depression and anxiety, and is currently on disability seeking treatment from a therapist in [place]. The patient admits that he was in fact trying to kill himself. He also complains of some abdominal pain. He feels very tired, and does not communicate very much. In the emergency department, labs were obtained. CBC was unremarkable. Chemistries showed a mildly reduced potassium level at 3.4. Blood pressure initially was stable, but when I saw the patient in the ER, it was 89/66. He was receiving an IV fluid bolus. He received activated charcoal per EMS. Urine drug screen is pending. Dr. Sandhu was notified, and the patient was admitted to CCU for medical stabilization, suicide watch, and psychiatric consultation. Hospital Course 05/26/16 Admit to CCU for medical stabilization and suicide watch after suicide attempt via drug overdose. Start D5 half-normal saline with KCl at 100 mL per hour for hypotension and hypokalemia. UDS pending. Zofran PRN. Clear liquids; advance as able. Consult CM - mother voices interest in a dual-treatment facility (depression and drug use) if there's a local one. Will need to consult Psychiatry when stable. 05/27/16 Rafita was seen in his room this morning. He has no complaints except his IV site in his right wrist is painful. He denies any other pain. He denies shortness of breath or nausea. He is urinating without difficulty. He has been up walking in the room without lightheadedness or shortness of breath. He complains of feeling a little anxious. He states he slept okay last night. He ate 2 servings of breakfast this morning. He ate supper last night without difficulties. On exam heart rate is 100. Blood pressure is 97/58. Oxygen saturation is 100% on room air. He is afebrile. GEN-alert, oriented, no acute distress HEENT-sclera anicteric NECK-supple CV-borderline tachycardic rate with irregular rhythm. Telemetry was reviewed and revealed no arrhythmias CHEST-to auscultation bilaterally ABD-soft, nontender, nondistended with positive bowel sounds -no Espinosa EXT-no edema NEURO-no focal deficits, no muscle rigidity. He is alert and oriented SKIN-warm and dry without rashes On CBC white count is 10, hemoglobin 12.8, platelets 281, normal differential Comprehensive metabolic is essentially normal other than sodium mildly elevated at 146. Impression Intentional overdose/suicide attempt of Abilify and meclizine Anxiety Borderline elevated heart rate-likely secondary to anxiety Depression Substance abuse Hypokalemia-resolved Plan Discontinue IV fluids I called and talked with [facility] poison control, which had been contacted yesterday regarding this patient. They stated that if he was medically stable at this time that despite Abilify having a long half-life he does not require continued monitoring on an inpatient status medically. I then called and talked with psychiatrist, Dr. Bojorquez. He recommended inpatient psychiatry transfer. I will call and talk with the social work faculty member to help arrange transfer. Continue to monitor on suicide precautions. The patient may not leave AGAINST MEDICAL ADVICE. 05/27/[id number] AM I was called by our social work faculty member, Daisy. She stated that the patient was accepted at the psychiatric facility in [place]. I will notify the patient's primary care physician. Discharge paperwork has been completed. Problems: (1) Toxic encephalopathy Status: Acute Assessment & Plan: Secondary to Abilify and meclizine overdose. (2) Suicide attempt Status: Acute Assessment & Plan: 20 Abilify and 20 Meclizine (3) Hypotension Status: Acute (4) Hypokalemia Status: Acute Assessment & Plan: POA (5) Methamphetamine abuse Status: Acute (6) Depression Status: Chronic (7) Anxiety Status: Chronic Code Status Full Code Home Meds Active Scripts Acetaminophen (Tylenol) 325 Mg Tablet, 325-650 MG PO Q5H Y for DISCOMFORT, #10 TAB Prov:NICOLAS CUNNINGHAM MD 05/27/16 Nicotine (Nicotine Patch 21 mg/24hr) 1 Each Patch.td24, 1 REMOVAL TD DAILY, #1 BOX Prov:NICOLAS CUNNINGHAM MD 05/27/16 Nicotine (Nicotine Patch 21 mg/24hr) 1 Each Patch.td24, 21 MG TD DAILY, #1 BOX Prov:NICOLAS CUNNINGHAM MD 05/27/16 Discontinued Reported Medications Aripiprazole (Abilify) 5 Mg Tablet, 5 MG PO DAILY 05/26/16 Meclizine HCl (Meclizine HCl) 25 Mg Tablet, 25 MG PO PRN 05/26/16 Face to Face Encounter I met with patient on the day of dismissal and discussed follow up appointments , medications, and safety plan. Discharge Disposition Transfer to inpatient psychiatry in [facility] Copies To 1: ERNESTO HAINES MD; MAMADOU BOJORQUEZ MD, STEPHANIE L MD May 27, 2016 11:04
--- NOTE | 2016-05-27 12:35 | NUR ---
Nutrition Risk F/U Diet Order: Regular Noted in Dr Bojorquez's note pt has had 60 lb weight loss in last [address] visited pt regarding pt's appetite. Pt reports his appetite is much improved. Pt declined offer for mighty shakes. Pt did request an additional cheeseburger and chicken strips before dismissal. Pt was eating his lunch of a cheeseburger and chicken strips with brownie etc during visit. RD assisted pt is ordering a second lunch tray. RD available at [id number] Addendum: 05/27/16 at [address] Pt noted the 60 lb weight loss in 6 months was related to his meth habit that affected his appetite. Pt noted appetite has returned.
--- NOTE | 2016-05-27 12:40 | NUR ---
FAMILY PARENTS HERE, REQUEST TIME TO VISIT WITH PATIENT AND "WORK OUT DETAILS".
--- NOTE | 2016-05-27 13:52 | NUR ---
TRANSFER APS CALLED FOR TRANSPORT. REPORT GIVEN TO MITALI GARCIA AT [facility]. PATIENT CONTINUES TO VISIT WITH PARENTS, CONVERSATION BEGINNING TO ESCALATE. INFORMED OF CALL TO APS TRANSFER AND APPROXIMATE TIME OF TRANSFER.
--- NOTE | 2016-05-27 14:31 | NUR ---
DISMISSED PER STRETCHER WITH [facility]PS SERVICES. AND PARENTS PRESENT THIS AFTERNOON. UPDATED REPORT TO [facility]TEN AT [facility]. PATIENT AWAKE, ALERT, STABLE AND COOPERATIVE AT THIS TIME.
== END 2016-05-27 14:31 ==
LOC: ED 09:16 → EEVIPCON 10:56 → EDHOLD 10:56 → CCU 11:50
PROVIDERS: ADMIT Hospitalist; ATTEND Hospitalist
DX: T43.592A Poisoning by other antipsychotics and neuroleptics, intentional self-harm, initial encounter (principal); T45.0X2A Poisoning by antiallergic and antiemetic drugs, intentional self-harm, initial encounter; I95.89 Other hypotension; E87.6 Hypokalemia; Y92.018 Other place in single-family (private) house as the place of occurrence of the external cause; F33.2 Major depressive disorder, recurrent severe without psychotic features; Z63.0 Problems in relationship with spouse or partner; J45.909 Unspecified asthma, uncomplicated; F15.10 Other stimulant abuse, uncomplicated; Z87.442 Personal history of urinary calculi; F17.200 Nicotine dependence, unspecified, uncomplicated; F41.9 Anxiety disorder, unspecified; Z81.1 Family history of alcohol abuse and dependence; Z81.3 Family history of other psychoactive substance abuse and dependence; Z81.8 Family history of other mental and behavioral disorders
CPT/HCPCS: 36415; 51701; 80053; 80307; 81003; 83735; 85025; 93005; 96360; 96361; 99218; 99285; J3480; J7030; 80306

== ENCOUNTER 2016-07-15 10:51 | Emergency (ER) | payer OTHER ==
[~2016-07-15] VITALS: Ht 180.3 cm; Wt 75.5 kg
[~2016-07-15 10:51] MED LIST changes: +ACET-2321 PO; -AMOX500T2 PO; -BUSP7.5T7 PO; -ESCI20TA PO; -HYDR25TA85 PO; +NICO1PAT16 TD; -SULF1TAB42 PO
[2016-07-15 10:54] VITALS: Ht 180.3 cm; Wt 75.5 kg
--- OUTSIDE RECORDS SUMMARY | 2016-07-15 10:56 | XMS REPORT | Continuity of Care Document ---
Author Author [facility] Organization [facility] Address Unknown Phone Unavailable Allergies Medications Problems Date Dx Coded Attending Type Code Diagnosis Diagnosed By 04/29/2016 BRANDON KEYS F15.10 Other stimulant abuse, uncomplicated Procedures Results Test Result Range CBC - 04/29/16 06:45 Hemoglobin-Blood 15.2 g-dL 11.00 - 18.00 Hematocrit-Blood 46.1 % 35.0 - 55.0 Leukocytes [count] 10.90 [id number] 4.00 - 11.00 Erythrocytes [count] 4.90 [id number] 4.00 - 6.20 Erythrocyte MCV 94.1 fL 80 - 100 Erythrocyte MCH 31.0 pg 26.0 - 34.0 Erythrocyte MCHC 33.0 g/dL 32.0 - 36.0 RDW-CV 12.6 % 10.5 - 14.0 Platelets 331 [id number] 150.00 - 400.00 MPV 10.3 fL 8.50 [...] Quantitative-Urine Negative Negative Phencyclidine, Quantitative-Urine Negative Negative CBC - 06/03/16 07:57 Hemoglobin-Blood 14.3 g-dL 11.00 - 18.00 Hematocrit-Blood 42.2 % 35.0 - 55.0 Leukocytes [count] 11.87 [id number] 4.00 - 11.00 Erythrocytes [count] 4.55 [id number] 4.00 - 6.20 Erythrocyte MCV 92.7 fL 80 - 100 Erythrocyte MCH 31.4 pg 26.0 - 34.0 Erythrocyte MCHC 33.9 g/dL 32.0 - 36.0 RDW-CV 12.1 % 10.5 - 14.0 Platelets 287 [id number] 150.00 - 400.00 MPV 10.6 fL 8.50 - 11.50 Neutrophils [Pct] 55.6 % 50 - 80 Lymphocytes [Pct] 34.0 % 25 - 50 Monocytes [Pct] 8.6 % 2 - 12 Eosinophils [Pct] 1.5 % 0 - 5 Basophils [Pct] 0.3 % 0 - 2 [place] Profile - 06/03/16 07:57 Sodium 142 mmol/L 135 - 152 Potassium 3.94 mmol/L 3.5 - 5.3 Chloride 102.1 mmol/L 100 - 116 Carbon Dioxide 23 mmol/L 18 - 29 Glucose 103 mg/dL 70 - 110 Urea Nitrogen (BUN) 17 mg/dL 7 - 25 Creatinine 0.66 mg/dL 0.6 - 1.3 Calcium 9.4 mg/dL 8.60 - 10.30 Albumin 4.0 g/dL 3.40 - 4.20 Protein, Total 6.9 g/dL 5.00 - 12.00 AST-Serum 14 IU/L 10.00 - 45.00 ALT-Serum 21 IU/L 10.00 - 25.00 Bilirubin,Total 0.4 mg/dL 0.30 - 1.00 Alkaline Phosphatase 68 IU/L 53.00 - 128.00 Total Cholesterol-Serum 156 mg/dL 136 - 200 Triglycerides 129 mg/dL 10.00 - 200.00 AGE (yrs) 31 NRG GGT 24 IU/L 9.00 - 64.00 Lactate Dehydrogenase (LDH) 140 IU/L 91 - 270 Phosphorus 4.1 mg/dL 2.50 - 5.00 Uric Acid 5.9 mg/dL 3.30 - 8.70 eGFR/1.73 sq M, black female 125 UNIT NRG eGFR/1.73 sq M, black male 168 UNIT NRG eGFR/1.73 sq M, white female 103 UNIT NRG eGFR/1.73 sq M, white male 139 UNIT NRG Urine Dipstick - 06/03/16 07:57 Color of Urine Yellow Straw,Yellow Clarity of Urine Cloudy Clear Specific gravity of Urine >=1.030 1.005 - 1.030 pH of Urine by Test strip 5.5 Normal 5 - 8 Protein, Test Strip-Urine Negative Negative Glucose Strip Test-Urine Negative Negative Leukocyte esterase [Qual] Negative Negative Ketones Strip Test-Serum Trace Negative Bilirubin [Qual] Negative Negative Urobilinogen- Urine Dipstick 0.2 E.U./dL <0.2,0.2 Red Blood Cells-Urine Dipstick Negative Negative Nitrite [Qual] Negative Negative Drugs of abuse 8 panel-Urine - 06/03/16 07:57 Amphetamines, Quantitative-Urine Negative Negative Barbiturates, Quantitative-Urine Negative Negative Benzodiazepines, Qualitative-Urine Negative Negative Tetrahydrocannabinol [Qual] Negative Negative Cocaine w/ Metabolites, Quantitative-Urine Negative Negative Alcohol (Ethanol), Quantitative-Urine Negative Negative Opiates, Quantitative-Urine Negative Negative Phencyclidine, Quantitative-Urine Negative Negative Encounters ACCT No. Visit Date/Time Discharge Status Pt. Type Provider Facility Loc./Unit Complaint [id number] 06/03/2016 14:00:00 06/03/2016 22:00:00 DIS CONTEH [facility] OT [id number] 06/03/2016 07:42:00 06/03/2016 08:42:00 DIS WERO [facility] OT [id number] 04/29/2016 13:00:00 04/29/2016 21:00:00 DIS VC BRANDON KEYS [facility] OT [id number] 04/29/2016 07:22:00 04/29/2016 08:22:00 DIS [facility]TEH [facility] OT
--- OUTSIDE RECORDS SUMMARY | 2016-07-15 10:56 | XMS REPORT | Continuity of Care Document ---
Author Author [facility]KAELA [facility] Organization [facility] Address Unknown Phone Unavailable Support Name Relationship Address Phone TREVOR SANDHU MD Caregiver [address] [place] [address] [place] [address] Unavailable RTEVOR SANDHU MD Caregiver [address] [place] [address] [place] [address] Unavailable ERNESTO HAINES MD Caregiver [address] [facility] [place] [address] Unavailable BETTYE HOOK DO Caregiver [address] [place] [address] [place] [address] Unavailable IDALMIS THOMAS Next Of Kin [address] [place] [id number] C Insurance Providers Guarantor Doc Thomas Address [address] [place] [address] C Email DENIED 16 Payer [facility] Healthcare Policy Number [id number] Subscriber's Name Doc Thomas Relationship 18 Self Group Number [id number] Advance Directives Directive Response Recorded Date/Time Advanced Directives Type None 05/26/16 9:18am Ordered Resuscitation Status Full Code 05/26/16 10:58am Resuscitation Documents on File No 05/26/16 12:13pm DPOA for Healthcare Only No 05/26/16 9:50pm Living Will No 05/26/16 12:13pm Problems Active Problems Medical Problem Onset Date Status Anxiety Unknown Chronic Asthma Unknown Chronic Bipolar II disorder Unknown Depression Unknown Chronic Hypokalemia Unknown Acute Hypotension Unknown Acute Kidney stones Unknown Chronic Methamphetamine abuse Unknown Acute Methamphetamine use disorder, severe Unknown PHARYNGITIS Unknown Acute Suicidal ideation Unknown Suicidal overdose Unknown Suicide attempt Unknown Acute Toxic encephalopathy Unknown Acute Past Problems Medical Problem Onset Date Dehydration, mild Unknown Drug-induced psychotic disorder with delusions Unknown Methamphetamine abuse Unknown PHARYNGITIS Unknown PHARYNGITIS Unknown Vertigo, benign positional Unknown Medications Current Home Medications Medication Dose Units Route Directions Days Qty Instructions Start Date Acetaminophen (Tylenol) 325 Mg Tablet 325-650 Mg Oral Every 5 Hours as needed for Discomfort 10 Tablet 05/27/16 Nicotine (Nicotine Patch 21 Mg/24HR) 1 Each Patch.td24 21 Mg Transderm Daily 1 Box 05/27/16 Nicotine (Nicotine Patch 21 Mg/24HR) 1 Each Patch.td24 1 Removal Transderm Daily 1 Box 05/27/16 Past Home Medications Medication Directions Ordered Status Aripiprazole (Abilify) 5 Mg Tablet, 5 Mg Oral Daily 05/26/16 Discontinued Meclizine Hcl 25 Mg Tablet, 25 Mg Oral As Needed 05/26/16 Discontinued Social History Social History Problem Response Recorded Date/Time Onset Date Status Reason for Hospitalization intentional overdose/suicide attempt 05/27/2016 10 :53am Not Applicable Not Applicable Hx Substance Use Y COCAINE AND METH 05/26/2016 9:36am Not Applicable Not Applicable Hx Alcohol Use No 05/26/2016 9:36am Not Applicable Not Applicable Has the pt used tobacco in the last 12 months Yes 05/26/2016 12:20pm Not Applicable Not Applicable Query Response Start Date Stop Date Smoking Status Current every day smoker Hospital Discharge Instructions No hospital discharge instructions. Plan of Care Discharge Date 05/27/16 2:31pm Disposition 65 TO PSYCH HOSP/UNIT Prescriptions See Medication Section Functional Status Query Response Date Recorded Mobility Status Bedrest May 26, 2016 12:30pm Assistive Devices None May 26, 2016 12:30pm Activity Limitations Shortness of breath May 26, 2016 12:30pm Feeding Ability Independent May 26, 2016 12:30pm Toileting Ability Independent May 26, 2016 12:30pm Grooming Ability Independent May 26, 2016 12:30pm Dressing Ability Independent May 26, 2016 12:30pm Driving Ability Independent May 26, 2016 12:30pm Housework Ability Independent May 26, 2016 12:30pm Meal Preparation Ability Independent May 26, 2016 12:30pm Stair Climbing Ability Independent May 26, 2016 12:30pm Ability to complete ADL's impeded by No change May 26, 2016 12:30pm Cognitive/Perceptual Impairments None May 26, 2016 12:30pm Allergies, Adverse Reactions, Alerts No known allergies. Immunizations Query Response on File Recorded Date/Time Hx Influenza Vaccination No 05/26/16 12:20pm Hx Influenza Vaccination No 05/26/16 12:20pm Vital Signs Acute Vital Signs Vital Response Date/Time Temperature (Fahrenheit) 97.6 deg F (96.8 - 99.1) 05/27/2016 8:00am Temperature (Calculated Celsius) 36.93483 degrees C (36.0 - 37.3) 05/27/2016 8:00am Pulse Rate (adult) 94 bpm (60 - 100) 05/27/2016 2:00pm Respiratory Rate 23 breaths/min (10 - 20) 05/27/2016 2:00pm O2 Sat by Pulse Oximetry 99 % (90 - 100) 05/27/2016 2:00pm Oxygen Delivery Method Room Air 05/27/2016 2:00pm Blood Pressure 121/80 mm Hg 05/27/2016 12:00pm Blood Pressure Source Automatic Cuff 05/27/2016 12:00pm Height (Feet) 6 feet 05/26/2016 9:50pm Height (Inches) 0.00 inches 05/26/2016 9:50pm Weight (Kilograms) 72.400 kg 05/27/2016 8:09am Body Mass Index (BMI) 21.4 05/26/2016 12:11pm Results Laboratory Results Test Name Result Units Flags Reference Collection Date/Time Result Date/ Time Comments Neutrophils % (Manual) 78.0 % H 33-66 [...] Comment NORMAL 03/05/2016 10:54am 03/05/2016 11 :32am Thyroid Stimulating Hormone (TSH) 0.24 MIU/L L 0.47-4.68 03/05/2016 10: 54am 03/05/2016 12:12pm Influenza Type A Antigen NEGATIVE NEGATIVE 03/05/2016 10:55am 2016 11:28am Negative for Flu A protein antigen. Assay sensitivity is 90%. Influenza Type B Antigen NEGATIVE NEGATIVE 03/05/2016 10:55am 2016 11:28am Negative for Flu B protein antigen. Assay sensitivity is 90%. White Blood Count 10.0 T/MM3 4.5-11.0 05/27/2016 4:53am 05/27/2016 5: 20am Red Blood Count 4.00 M/MM3 L 4.50-5.90 05/27/2016 4:53am 05/27/2016 5: 20am Hemoglobin 12.8 GM/DL L 13.5-17.5 05/27/2016 4:53am 05/27/2016 5:20am Hematocrit 38.8 % L 41-53 05/27/2016 4:53am 05/27/2016 5:20am Mean Corpuscular Volume 97.0 UM3 80-100 05/27/2016 4:53am 05/27/2016 5: 20am Mean Corpuscular Hemoglobin 32.0 UUG 26-34 05/27/2016 4:53am 2016 5:20am Mean Corpuscular Hemoglobin Concent 33.0 GM/DL 31-37 05/27/2016 4:53am 05/27/2016 5:20am RDW Standard Deviation 44.7 FL 36.9-50.2 05/27/2016 4:53am 05/27/2016 5 :20am Platelet Count 281 T/MM3 130-400 05/27/2016 4:53am 05/27/2016 5:20am Mean Platelet Volume 10.2 UM3 9.4-12.4 05/27/2016 4:53am 05/27/2016 5: 20am Neutrophils (%) (Auto) 50.1 % 33-66 05/27/2016 4:53am 05/27/2016 5: 20am Lymphocytes (%) (Auto) 41.4 % 23-45 05/27/2016 4:5305/27/2016 5: 20am Monocytes (%) (Auto) 6.2 % 0-9.0 05/27/2016 4:53am 05/27/2016 5:20am Eosinophils (%) (Auto) 1.7 % 0-4 05/27/2016 4:5305/27/2016 5:20am Basophils (%) (Auto) 0.5 % 0-2 05/27/2016 4:5305/27/2016 5:20am Immature Granulocyte % (Auto) 0.1 % 0.0-0.5 05/27/2016 4:532016 5:20am Absolute Neutrophils (auto) 5.0 T/MM3 1.8-7.7 05/27/2016 4:532016 5:20am Absolute Lymphocytes (auto) 4.1 T/MM3 1-4.8 05/27/2016 4:532016 5:20am Absolute Monocytes (auto) 0.6 T/MM3 0-0.8 05/27/2016 4:5305/27/2016 5:20am Absolute Eosinophils (auto) 0.2 T/MM3 0-0.5 05/27/2016 4:532016 5:20am Absolute Basophils (auto) 0.1 T/MM3 0-0.2 05/27/2016 4:5305/27/2016 5:20am Absolute Immature Granulocyte (auto 0.01 T/MM3 0.00-0.03 05/27/2016 4: 5305/27/2016 5:20am Icterus Index < 2 0-7 05/27/2016 4:5305/27/2016 5:40am Chemistry Specimen Hemolysis < 15 0-25 05/27/2016 4:5305/27/2016 5 :40am 0-25: Specimen Exhibited No Hemolysis. Turbidity < 20 0-20 05/27/2016 4:53am 05/27/2016 5:40am Sodium Level 146 MEQ/L H 134-144 05/27/2016 4:53am 05/27/2016 5:40am Potassium Level 4.4 MEQ/L D 3.6-5 05/27/2016 4:53am 05/27/2016 5:42am Chloride Level 110 MEQ/L H 98-107 05/27/2016 4:53am 05/27/2016 5:40am Carbon Dioxide Level 29 MEQ/L 22-30 05/27/2016 4:53am 05/27/2016 5: 40am Anion Gap 7 MEQ/L 5-15 05/27/2016 4:53am 05/27/2016 5:40am Blood Urea Nitrogen 11.0 MG/DL 9-20 05/27/2016 4:5305/27/2016 5: 40am Creatinine 0.9 MG/DL 0.8-1.5 05/27/2016 4:5305/27/2016 5:40am BUN/Creatinine Ratio 12 RATIO 6-26 05/27/2016 4:53am 05/27/2016 5:40am Glomerular Filtration Rate Calc 97 05/27/2016 4:5305/27/2016 5: 40am Glucose Level 102 MG/DL 75-110 05/27/2016 4:53am 05/27/2016 5:40am Calculated Osmolality 280 MOSM/KG 261-280 05/27/2016 4:53am 05/27/2016 5:40am Calcium Level 9.4 MG/DL 8.4-10.2 05/27/2016 4:53am 05/27/2016 5:40am Total Bilirubin 0.50 MG/DL 0.20-1.30 05/27/2016 4:53am 05/27/2016 5: 40am Alkaline Phosphatase 55 U/L 38-126 05/27/2016 4:53am 05/27/2016 5:40am Total Protein 5.9 G/DL L 6.3-8.2 05/27/2016 4:53am 05/27/2016 5:40am Albumin 3.4 G/DL L 3.5-5.0 05/27/2016 4:5305/27/2016 5:40am Globulin 2.5 G/DL 2.4-3.6 05/27/2016 4:53am 05/27/2016 5:40am Albumin/Globulin Ratio 1.4 RATIO 1.1-2.2 05/27/2016 4:53am 05/27/2016 5 :40am Aspartate Amino Transf (AST/SGOT) 12 U/L L 17-59 05/27/2016 4:53am 05/27 5:40am Alanine Aminotransferase (ALT/SGPT) 25 U/L 21-72 05/27/2016 4:53am 08/2016 5:40am Magnesium Level 2.0 MG/DL 1.6-2.3 05/27/2016 4:53am 05/27/2016 5:40am Acetaminophen Level < 10 UG/ML L 10-30 05/26/2016 9:35am 05/26/2016 9: 53am TOXIC <4 HR POST INGESTION: >150 MG/L; TOXIC <12 HR POST INGESTION: >50 MG/L Salicylates Level < 1.0 MG/DL L 2-20 05/26/2016 9:35am 05/26/2016 9: 53am Alcohol, Quantitative <10 MG/DL <10 05/26/2016 9:35am 05/26/2016 9: 53am Urine Collection Type CLEANCATCH-MIDSTREAM 05/26/2016 11:0405/26 11:29am Urine Color YELLOW YELLOW 05/26/2016 11:0405/26/2016 11:29am Urine Turbidity CLEAR CLEAR 05/26/2016 11:0405/26/2016 11:29am Urine Specific [place] 1.010 L 1.015-1.025 05/26/2016 11:042016 11:29am Urine pH 6.0 5.0-8.0 05/26/2016 11:0405/26/2016 11:29am Urine Leukocyte Esterase NEGATIVE NEGATIVE 05/26/2016 11:042016 11:29am Urine Nitrite NEGATIVE NEGATIVE 05/26/2016 11:0405/26/2016 11: 29am Urine Protein NEGATIVE NEGATIVE 05/26/2016 11:0405/26/2016 11: 29am Urine Glucose (UA) NEGATIVE NEGATIVE 05/26/2016 11:04am 05/26/2016 11 :29am Urine Ketones NEGATIVE NEGATIVE 05/26/2016 11:0405/26/2016 11: 29am Urine Urobilinogen 0.2 EU/DL NORMAL 05/26/2016 11:04am 05/26/2016 11: 29am Urine Bilirubin NEGATIVE NEGATIVE 05/26/2016 11:04am 05/26/2016 11: 29am Urine Blood NEGATIVE NEGATIVE 05/26/2016 11:04am 05/26/2016 11:29am Urinalysis Comment MICROSCOPIC NOT IND. 05/26/2016 11:04am 2016 11:29am Name: DOC THOMAS Unit #: [id number] : 1985 Sex: M DISCHARGE SUMMARY Admit Date: 05/26/16 Report #: [id number] [facility] General Date Date DATE: 05/27/16 TIME: 10:55 Attending Physician Trevor Sandhu MD Admitting Physician Trevor Sandhu MD Consulting Physician Mamadou Bojorquez MD Admitting Diagnosis Suicide Attempt, Polypharmacy OD Discharge Diagnosis Suicide attempt-with overdose of Abilify and meclizine, hypotension-resolved, hypokalemia-resolved, methamphetamine abuse, bipolar disorder, possible depression/anxiety Procedures none Laboratory Laboratory Tests Test 05/26/16 09:35 05/26/16 11:04 05/27/16 04:53 White Blood Count 9.5T/MM3 (4.5-11.0) 10.0T/MM3 (4.5-11.0) Red Blood Count 4.22M/MM3 (4.50-5.90) 4.00M/MM3 (4.50-5.90) Hemoglobin 13.5GM/DL (13.5-17.5) 12.8GM/DL (13.5-17.5) Hematocrit 40.1% (41-53) 38.8% (41-53) Mean Corpuscular Volume 95.0UM3 (80-100) 97.0UM3 (80-100) Mean Corpuscular Hemoglobin 32.0UUG (26-34) 32.0UUG (26-34) Mean Corpuscular Hemoglobin Concent 33.7GM/DL (31-37) 33.0GM/DL (31-37) RDW Standard Deviation 43.0FL (36.9-50.2) 44.7FL (36.9-50.2) Platelet Count 275T/MM3 (130-400) 281T/MM3 (130-400) Mean Platelet Volume 9.6UM3 (9.4-12.4) 10.2UM3 (9.4-12.4) Immature Granulocyte % (Auto) 0.2% (0.0-0.5) 0.1% (0.0-0.5) Neutrophils (%) (Auto) 51.1% (33-66) 50.1% (33-66) Lymphocytes (%) (Auto) 39.6% (23-45) 41.4% (23-45) Monocytes (%) (Auto) 7.2% (0-9.0) 6.2% (0-9.0) Eosinophils (%) (Auto) 1.6% (0-4) 1.7% (0-4) Basophils (%) (Auto) 0.3% (0-2) 0.5% (0-2) Absolute Immature Granulocyte (auto 0.02T/MM3 (0.00-0.03) 0.01T/MM3 (0.00-0.03) Absolute Neutrophils (auto) 4.9T/MM3 (1.8-7.7) 5.0T/MM3 (1.8-7.7) Absolute Lymphocytes (auto) 3.8T/MM3 (1-4.8) 4.1T/MM3 (1-4.8) Absolute Monocytes (auto) 0.7T/MM3 (0-0.8) 0.6T/MM3 (0-0.8) Absolute Eosinophils (auto) 0.2T/MM3 (0-0.5) 0.2T/MM3 (0-0.5) Absolute Basophils (auto) 0.0T/MM3 (0-0.2) 0.1T/MM3 (0-0.2) Turbidity < 20 (0-20) < 20 (0-20) Sodium Level 144MEQ/L (134-144) 146MEQ/L (134-144) Potassium Level 3.4MEQ/L (3.6-5) 4.4MEQ/L (3.6-5) Chloride Level 106MEQ/L (98-107) 110MEQ/L (98-107) Carbon Dioxide Level 27MEQ/L (22-30) 29MEQ/L (22-30) Anion Gap 11MEQ/L (5-15) 7MEQ/L (5-15) Blood Urea Nitrogen 11.0MG/DL (9-20) 11.0MG/DL (9-20) Creatinine 0.9MG/DL (0.8-1.5) 0.9MG/DL (0.8-1.5) Glomerular Filtration Rate Calc 97 97 BUN/Creatinine Ratio 12RATIO (6-26) 12RATIO (6-26) Glucose Level 135MG/DL (75-110) 102MG/DL (75-110) Calculated Osmolality 278MOSM/KG (261-280) 280MOSM/KG (261-280) Calcium Level 9.5MG/DL (8.4-10.2) 9.4MG/DL (8.4-10.2) Total Bilirubin 0.70MG/DL (0.20-1.30) 0.50MG/DL (0.20-1.30) Icterus Index < 2 (0-7) < 2 (0-7) Aspartate Amino Transf (AST/SGOT) 15U/L (17-59) 12U/L (17-59) Alanine Aminotransferase (ALT/SGPT) 27U/L (21-72) 25U/L (21-72) Alkaline Phosphatase 65U/L (38-126) 55U/L (38-126) Total Protein 6.9G/DL (6.3-8.2) 5.9G/DL (6.3-8.2) Albumin 4.0G/DL (3.5-5.0) 3.4G/DL (3.5-5.0) Globulin 2.9G/DL (2.4-3.6) 2.5G/DL (2.4-3.6) Albumin/Globulin Ratio 1.4RATIO (1.1-2.2) 1.4RATIO (1.1-2.2) Chemistry Specimen Hemolysis < 15 (0-25) < 15 (0-25) Salicylates Level < 1.0MG/DL (2-20) Acetaminophen Level < 10UG/ML (10-30) Alcohol, Quantitative <10MG/DL (<10) Urine Collection Type Cleancatch-midstream Urine Color Yellow (YELLOW) Urine Turbidity Clear (CLEAR) Urine pH 6.0 (5.0-8.0) Urine Specific [place] 1.010 (1.015-1.025) Urine Protein Negative (NEGATIVE) Urine Glucose (UA) Negative (NEGATIVE) Urine Ketones Negative (NEGATIVE) Urine Blood Negative (NEGATIVE) Urine Nitrite Negative (NEGATIVE) Urine Bilirubin Negative (NEGATIVE) Urine Urobilinogen 0.2EU/DL (NORMAL) Urine Leukocyte Esterase Negative (NEGATIVE) Urinalysis Comment Microscopic not ind. Urine Opiates Screen NegativeNG/ML Urine Oxycodone Screen NegativeNG/ML Urine Methadone Screen NegativeNG/ML Urine Propoxyphene Screen NegativeNG/ML Urine Barbiturates Screen NegativeNG/ML Urine Tricyclic Antidepressants NegativeNG/ML Urine Phencyclidine Screen NegativeNG/ML Urine Amphetamines Screen PositiveNG/ML Urine Methamphetamines Screen PositiveNG/ML Urine Benzodiazepines Screen NegativeNG/ML Urine Cocaine Screen NegativeNG/ML Urine Cannabinoids Screen NegativeNG/ML Urine Drug Screen Confirmation Sent out Magnesium Level 2.0MG/DL (1.6-2.3) Microbiology none Radiology none History of Present Illness Doc Thomas is a 31-year-old male who presented to [facility] emergency department by EMS after a suicide attempt by prescription overdose. He took 20 Abilify and 20 Meclizine tablets at approximately 08 50. History was obtained from the patient's mother, at the patient was lethargic and did not provide much verbal communication. She states that he started using methamphetamines again about 5 months ago for an unknown reason. He has a history of drug abuse, but after treatment at age 17, he only had a couple relapses. She has tried to take him to treatment a couple of times over the last few months, but has been unsuccessful. He is very labile on meth, and she states "we never know what he will do.". He has a history of manipulating, and according to his mother, he knows how to speak the language of psychiatrists and police officers to get out of trouble and to be released home. His mother noticed that over the last few days, he has been making morbid comments, but no overt suicidal statements. For example, she states that he has sent text messages such as "my family would be better off without me". She also reports that his recently filed for divorce. She recounts that this morning, the patient told his that he would go to treatment if she would cancel the divorce, but she refused. To her knowledge, he has never attempted to kill himself previously. He has a history of depression and anxiety, and is currently on disability seeking treatment from a therapist in [place]. The patient admits that he was in fact trying to kill himself. He also complains of some abdominal pain. He feels very tired, and does not communicate very much. In the emergency department, labs were obtained. CBC was unremarkable. Chemistries showed a mildly reduced potassium level at 3.4. Blood pressure initially was stable, but when I saw the patient in the ER, it was 89/66. He was receiving an IV fluid bolus. He received activated charcoal per EMS. Urine drug screen is pending. Dr. Sandhu was notified, and the patient was admitted to CCU for medical stabilization, suicide watch, and psychiatric consultation. Hospital Course 05/26/16 Admit to CCU for medical stabilization and suicide watch after suicide attempt via drug overdose. Start D5 half-normal saline with KCl at 100 mL per hour for hypotension and hypokalemia. UDS pending. Zofran PRN. Clear liquids; advance as able. Consult CM - mother voices interest in a dual-treatment facility (depression and drug use) if there's a local one. Will need to consult Psychiatry when stable. 05/27/16 Rafita was seen in his room this morning. He has no complaints except his IV site in his right wrist is painful. He denies any other pain. He denies shortness of breath or nausea. He is urinating without difficulty. He has been up walking in the room without lightheadedness or shortness of breath. He complains of feeling a little anxious. He states he slept okay last night. He ate 2 servings of breakfast this morning. He ate supper last night without difficulties. On exam heart rate is 100. Blood pressure is 97/58. Oxygen saturation is 100% on room air. He is afebrile. GEN-alert, oriented, no acute distress HEENT-sclera anicteric NECK-supple CV-borderline tachycardic rate with irregular rhythm. Telemetry was reviewed and revealed no arrhythmias CHEST-to auscultation bilaterally ABD-soft, nontender, nondistended with positive bowel sounds -no Espinosa EXT-no edema NEURO-no focal deficits, no muscle rigidity. He is alert and oriented SKIN-warm and dry without rashes On CBC white count is 10, hemoglobin 12.8, platelets 281, normal differential Comprehensive metabolic is essentially normal other than sodium mildly elevated at 146. Impression Intentional overdose/suicide attempt of Abilify and meclizine Anxiety Borderline elevated heart rate-likely secondary to anxiety Depression Substance abuse Hypokalemia-resolved Plan Discontinue IV fluids I called and talked with [facility] poison control, which had been contacted yesterday regarding this patient. They stated that if he was medically stable at this time that despite Abilify having a long half-life he does not require continued monitoring on an inpatient status medically. I then called and talked with psychiatrist, Dr. Bojorquez. He recommended inpatient psychiatry transfer. I will call and talk with the social studies department chair to help arrange transfer. Continue to monitor on suicide precautions. The patient may not leave AGAINST MEDICAL ADVICE. 05/27/[id number] AM I was called by our social studies department chair, Daisy. She stated that the patient was accepted at the psychiatric facility in [place]. I will notify the patient's primary care physician. Discharge paperwork has been completed. Problems: (1) Toxic encephalopathy Status: Acute Assessment & Plan: Secondary to Abilify and meclizine overdose. (2) Suicide attempt Status: Acute Assessment & Plan: 20 Abilify and 20 Meclizine (3) Hypotension Status: Acute (4) Hypokalemia Status: Acute Assessment & Plan: POA (5) Methamphetamine abuse Status: Acute (6) Depression Status: Chronic (7) Anxiety Status: Chronic Code Status Full Code Home Meds Active Scripts Acetaminophen (Tylenol) 325 Mg Tablet, 325-650 MG PO Q5H Y for DISCOMFORT, #10 TAB Prov:NICOLAS CUNNINGHAM MD 05/27/16 Nicotine (Nicotine Patch 21 mg/24hr) 1 Each Patch.td24, 1 REMOVAL TD DAILY, #1 BOX Prov:NICOLAS CUNNINGHAM MD 05/27/16 Nicotine (Nicotine Patch 21 mg/24hr) 1 Each Patch.td24, 21 MG TD DAILY, #1 BOX Prov:NICOLAS CUNNINGHAM MD 05/27/16 Discontinued Reported Medications Aripiprazole (Abilify) 5 Mg Tablet, 5 MG PO DAILY 05/26/16 Meclizine HCl (Meclizine HCl) 25 Mg Tablet, 25 MG PO PRN 05/26/16 Face to Face Encounter I met with patient on the day of dismissal and discussed follow up appointments , medications, and safety plan. Discharge Disposition Transfer to inpatient psychiatry in [facility] Copies To 1: ERNESTO HAINES MD; MAMADOU BOJORQUEZ MD, STEPHANIE L MD May 27, 2016 11:04 Procedures Procedure Status Date Provider(s) Routine venipuncture Completed 03/05/16 Chest x-ray 2vw frontal&latl Completed 03/05/16 Comprehen metabolic panel Completed 03/05/16 Drug test prsmv instrmnt Completed 03/05/16 Drug screen quantalcohols Completed 03/05/16 Analgesics non-opioid 1 or 2 Completed 03/05/16 Analgesics non-opioid 1 or 2 Completed 03/05/16 Urinalysis auto w/o scope Completed 03/05/16 Assay thyroid stim hormone Completed 03/05/16 Complete cbc w/auto diff wbc Completed 03/05/16 Influenza a/b ag ia Completed 03/05/16 Electrocardiogram tracing Completed 03/05/16 Emergency dept visit Completed 03/05/16 Encounters Encounter Location Arrival/Admit Date Discharge/Depart Date Attending Provider Discharged Inpatient (obs) [facility] 05/26/16 10:56am 05/27/16 2 :31pm TREVOR SANDHU MD Departed Emergency Room [facility] 03/05/16 10:05am 03/05/16 1: 10pm GREG STEVENS MD
[2016-07-15 11:35] LABS: BLOOD, URINE NEGATIVE (NEGATIVE); COLOR,URINE YELLOW (YELLOW); LEUKOCYTE ESTERASE ,URINE NEGATIVE (NEGATIVE); NITRITE,URINE NEGATIVE (NEGATIVE)
[2016-07-15 11:36] LABS: BASOPHILS % (AUTO) 0.3 % (0-2); EOSINOPHILS # (AUTO) 0.1 T/MM3 (0-0.5); EOSINOPHILS % (AUTO) 0.7 % (0-4); HCT - HEMATOCRIT 45.7 % (41-53); HGB - HEMOGLOBIN 15.4 GM/DL (13.5-17.5); IMMATURE GRANULOCYTE # (AUTO) 0.02 T/MM3 (0.00-0.03); IMMATURE GRANULOCYTE % (AUTO) 0.2 % (0.0-0.5); LYMPHOCYTES % (AUTO) 34.9 % (23-45); MEAN CORPUSCULAR HGB 31.8 UUG (26-34); MEAN CORPUSCULAR HGB CONC(MCHC 33.7 GM/DL (31-37); MEAN CORPUSCULAR VOLUME 94.2 UM3 (80-100); MEAN PLATELET VOLUME 9.8 UM3 (9.4-12.4); MONOCYTES # (AUTO) 0.7 T/MM3 (0-0.8); MONOCYTES % (AUTO) 6.2 % (0-9.0); NEUTROPHILS #(AUTO)-ABSOLUTE 6.6 T/MM3 (1.8-7.7); NEUTROPHILS % (AUTO) 57.7 % (33-66); RED BLOOD COUNT 4.85 M/MM3 (4.50-5.90); WBC - WHITE BLOOD COUNT 11.5 T/MM3 (4.5-11.0)
[2016-07-15] MEDS ORDERED: ARIP10TA15 PO (11:44)
[2016-07-15] MEDS ORDERED: TRAZ-170 PO (11:44)
[2016-07-15 11:45] LABS: ACETAMINOPHEN < 10 UG/ML (10-30); ALBUMIN 4.5 G/DL (3.5-5.0); ALBUMIN/GLOBULIN RATIO 1.6 RATIO (1.1-2.2); ALKALINE PHOSPHATASE 70 U/L (38-126); ALT (SGPT) 34 U/L (21-72); ANION GAP 12 MEQ/L (5-15); AST (SGOT) 19 U/L (17-59); BUN/CREATININE RATIO 13 RATIO (6-26); CALCIUM 9.7 MG/DL (8.4-10.2); CHLORIDE 107 MEQ/L (98-107); CO2 - CARBON DIOXIDE 27 MEQ/L (22-30); ETHANOL <10 MG/DL (<10); GLOMERULAR FILTRATION RATE 86; GLUCOSE 97 MG/DL (75-110); POTASSIUM 4.1 MEQ/L (3.6-5); SALICYLATE < 1.0 MG/DL (2-20); SODIUM 146 MEQ/L (134-144); TOTAL PROTEIN 7.3 G/DL (6.3-8.2)
[2016-07-15 11:47] LABS: AMPHETAMINE SCREEN,URINE POSITIVE
[2016-07-15 11:48] LABS: BARBITURATE SCREEN,URINE NEGATIVE; BENZODIAZEPINES SCREEN,URINE NEGATIVE; CANNABINOID SCREEN,URINE NEGATIVE; COCAINE SCREEN,URINE NEGATIVE; METHADONE SCREEN, URINE NEGATIVE; METHAMPHETAMINE SCREEN, URINE NEGATIVE; OPIATE SCREEN,URINE NEGATIVE; PHENCYCLIDINE SCREEN,URINE NEGATIVE; TRICYCLIC ANTIDEPRESSANT,URINE NEGATIVE
--- OUTSIDE RECORDS SUMMARY | 2016-07-15 11:52 | XMS REPORT | Continuity of Care Document ---
Author Author [facility] Organization [facility] Address Unknown Phone Unavailable Allergies Medications Problems Date Dx Coded Attending Type Code Diagnosis Diagnosed By 04/29/2016 BRANDON KEYS F15.10 Other stimulant abuse, uncomplicated Procedures Results Test Result Range CBC - 04/29/16 06:45 Hemoglobin-Blood 15.2 g-dL 11.00 - 18.00 Hematocrit-Blood 46.1 % 35.0 - 55.0 Leukocytes [count] 10.90 [id number] 4.00 - 11.00 Erythrocytes [count] 4.90 [id number] 4.00 - 6.20 Erythrocyte MCV 94.1 fL 80 - 100 Erythrocyte MCH 31.0 pg 26.0 - 34.0 Erythrocyte MCHC 33.0 g/dL 32.0 - 36.0 RDW-CV 12.6 % 10.5 - 14.0 Platelets 331 [id number]-ulU 150.00 - 400.00 MPV 10.3 fL 8.50 [...] % 35.0 - 55.0 Leukocytes [count] 11.87 [id number] 4.00 - 11.00 Erythrocytes [count] 4.55 f94-0-gjS 4.00 - 6.20 Erythrocyte MCV 92.7 fL 80 - 100 Erythrocyte MCH 31.4 pg 26.0 - 34.0 Erythrocyte MCHC 33.9 g/dL 32.0 - 36.0 RDW-CV 12.1 % 10.5 - 14.0 Platelets 287 [id number]-ktE 150.00 - 400.00 MPV 10.6 fL 8.50 [...] Status Pt. Type Provider Facility Loc./Unit Complaint [id number] 06/03/2016 14:00:00 06/03/2016 22:00:00 DIS CONTEH [facility] OT [id number] 06/03/2016 07:42:00 06/03/2016 08:42:00 DIS WERO [facility] OT [id number] 04/29/2016 13:00:00 04/29/2016 21:00:00 DIS VC BRANDON KEYS [facility] OT [id number] 04/29/2016 07:22:00 04/29/2016 08:22:00 DIS CONTEH [facility] OT
--- NOTE | 2016-07-15 12:00 | NUR ---
DR DR. HOOK IN TO SEE PT.
--- NOTE | 2016-07-15 12:37 | ERPDOC ---
Departure Disposition Decision Date: July 15, 2016 Disposition Decision Time: 14:00 Disposition: 65 TO PSYCH HOSP/UNIT Impression Impression Impression: Primary Impression: Bipolar II disorder Additional Impressions: Methamphetamine abuse Suicidal ideation Severity: Moderate Condition: Improved Seen By: Physician only Referrals: ERNESTO HAINES MD (Family) Problems/Meds/Labs Reviewed?: Yes Medications reviewed and manag: Yes Follow up care ordered?: Yes Mental Status: Alert, Oriented HPI - General Medical General Chief Complaint: Suicide Ideation/Attempt Stated Complaint: PSYCH EVAL Time Seen by Provider: 11:06 Source: patient, family, police Exam Limitations: no limitations HPI - General Medical Initial Comments 31-year-old male presents to emergency department with a chief complaint of needing a psychiatric evaluation. Patient is experiencing suicidal ideation. Patient denies self injury or self-harm. Patient denies homicidal ideation or plan. Patient does admit that he did originally tell his and the police department that he did ingest antifreeze which he denies. Patient states that he said this to gain attention. Patient denies any pain or discomfort. Patient denies any true self injury or self-harm. Patient does admit to still feeling suicidal. He does not name a specific plan. Patient presents to the emergency department via [place] [employer] with an involuntary hold. Patient denies any complaints or associated symptoms. Patient has a history of bipolar disorder and depression. He has been treated for psychiatric issues in the past. Occurred At: home Onset: Constant Allergies: Coded Allergies: No Known Allergies (Unverified , 07/15/16) Past History Patient Surgical History Shoulder arthroscopy. Appendectomy Past Medical History Psychological: bipolar, depression, drug abuse Surgical History General: appendix Joint: shoulder Family History Family PMH: FOUND: cancer Vaccines Hx Influenza Vaccination: No Social History Smoking Status: Current every day smoker # of Packs/Tins per Day: 2.0 # of Years: 18 Second Hand Exposure: Yes Substance Use Type: methamphetamine Alcohol Intake: occasionally Marital Status: Current Occupational Status: other Current Occupation: [employer] Constitutional Constitutional: DENIES: chills, fever Eyes General: DENIES: erythema, exudate Lids/Accessories: DENIES: erythema, swelling Vision: DENIES: acuity, blurring ENMT Ears: DENIES: drainage, erythema Hearing: DENIES: hearing loss Balance: DENIES: ataxia Sinuses: DENIES: congestion, pain Nose: DENIES: nosebleeds Mouth/Throat: DENIES: sore throat Teeth: DENIES: pain Jaw: DENIES: pain Cardiovascular Cardiac: DENIES: chest pain, dyspnea on exertion Rhythm/Rate: DENIES: irregular beat, palpitations Vascular: DENIES: pedal edema, unilateral swelling Pulmonary Respiratory: DENIES: cough, dyspnea, pleuritic chest pain, sputum GI Upper Abdomen: DENIES: nausea, pain, vomiting Lower Abdomen: DENIES: diarrhea, pain General: DENIES: dysuria, frequency, urgency Musculoskeletal General: DENIES: pain, tenderness Integumentary Skin: DENIES: itching, rash Neurological General: DENIES: headache, numbness, weakness Psychiatric Psychiatric: depression, suicidal ideation/attempt Endocrine Endocrine: DENIES: polydipsia, polyphagia Hematologic/Lymphatic Hematologic/Lymphatic: DENIES: frequent nosebleeds, lymphadenopathy Allergic/Immunological Allergic/Immunoligical: DENIES: allergic reactions, hives Physical Exam General General Nourishment: well nourished, well developed, appears stated age, no acute distress, adult General Body Habitus: well groomed Vitals and Pain First Documented Vital Signs Date Time Temp Pulse Resp B/P Pulse Ox O2 Delivery O2 Flow Rate FiO2 07/15/16 10:54 98.1 110 16 117/78 96 Room Air Weight: Kilograms: 75.500 Height (feet): 5 Height (inches): 11.00 Triage Pain Scale: RN VS reviewed by Provider: Yes Normal Exams: Head: Normocephalic w/o trauma Eyes: Pupils are PERRLA w/ EOMI, No scleral icterus, irritation, or foreign bodies noted ENMT: No facial trauma, nasal exudates, pharyngeal erythema, or exudates are noted Dental: No fractured, loose, or missing teeth noted Neck: Full range of motion, without adenopathy, JVD, bruits or thyromegaly Chest/Resp: Clear all sutton, with good airflow, and symmetry bilaterally CV: Regular rate and rhythm, without murmur or gallop, Pulses 2+ all extremities, capillary refill, <2 seconds all ext., no pedal edema noted Abdomen: Bowel sounds positive, soft, non-tender, non-distended, no hepatosplenomegaly, masses or bruits noted Lymphatic: No lymphadenopathy, or lymphedema noted Musculoskeletal: No tenderness, or deformity noted, good range of motion, all extremities Integumentary: No rashes, hives, or bruising noted, hair and nails, without abnormality Neurologic: Patient is alert, and oriented, cranial nerves, motor/sensory/ cerebellar, exams w/o gross deficits, to observation Psychiatric (brief) Comments Flat Affect. Differential Diagnoses Considering: Depression, Metabolic, Poisoning/Accidental OD, Other (Suicidal Ideation) Progress Results/Orders Orders Procedure Category Date Status Time Cbc W/Auto LAB 07/15/16 Complete Diff-Reflex Manual Cmp - Comprehensive LAB 07/15/16 Complete Metabolic EKG EKG 07/15/16 Logged Ethanol LAB 07/15/16 Complete Acetaminophen LAB 07/15/16 Complete Salicylate LAB 07/15/16 Complete Drug Screen LAB 07/15/16 Complete Urine-Test At [facility] 11:08 Ua, Dip Wreflex LAB 07/15/16 Complete [facility] [facility] [employer] 11:08 Blood Gas, Arterial - LAB 07/15/16 Complete ABG Lab Results Laboratory Tests Test 07/15/16 11:14 07/15/16 11:27 07/15/16 12:53 White Blood Count 11.5T/MM3 Red Blood Count 4.85M/MM3 Hemoglobin 15.4GM/DL Hematocrit 45.7% Mean Corpuscular Volume 94.2UM3 Mean Corpuscular Hemoglobin 31.8UUG Mean Corpuscular Hemoglobin Concent 33.7GM/DL RDW Standard Deviation 41.6FL Platelet Count 299T/MM3 Mean Platelet Volume 9.8UM3 Immature Granulocyte % (Auto) 0.2% Neutrophils (%) (Auto) 57.7% Lymphocytes (%) (Auto) 34.9% Monocytes (%) (Auto) 6.2% Eosinophils (%) (Auto) 0.7% Basophils (%) (Auto) 0.3% Absolute Immature Granulocyte (auto 0.02T/MM3 Absolute Neutrophils (auto) 6.6T/MM3 Absolute Lymphocytes (auto) 4.0T/MM3 Absolute Monocytes (auto) 0.7T/MM3 Absolute Eosinophils (auto) 0.1T/MM3 Absolute Basophils (auto) 0.0T/MM3 Turbidity < 20 Sodium Level 146MEQ/L Potassium Level 4.1MEQ/L Chloride Level 107MEQ/L Carbon Dioxide Level 27MEQ/L Anion Gap 12MEQ/L Blood Urea Nitrogen 13.0MG/DL Creatinine 1.0MG/DL Glomerular Filtration Rate Calc 86 BUN/Creatinine Ratio 13RATIO Glucose Level 97MG/DL Calculated Osmolality 281MOSM/KG Calcium Level 9.7MG/DL Total Bilirubin 0.50MG/DL Icterus Index < 2 Aspartate Amino Transf (AST/SGOT) 19U/L Alanine Aminotransferase (ALT/SGPT) 34U/L Alkaline Phosphatase 70U/L Total Protein 7.3G/DL Albumin 4.5G/DL Globulin 2.8G/DL Albumin/Globulin Ratio 1.6RATIO Chemistry Specimen Hemolysis < 15 Salicylates Level < 1.0MG/DL Acetaminophen Level < 10UG/ML Alcohol, Quantitative <10MG/DL Urine Collection Type Cleancatch-midstream Urine Color Yellow Urine Turbidity Clear Urine pH 6.0 Urine Specific [place] 1.020 Urine Protein Negative Urine Glucose (UA) Negative Urine Ketones Negative Urine Blood Negative Urine Nitrite Negative Urine Bilirubin Negative Urine Urobilinogen 1.0EU/DL Urine Leukocyte Esterase Negative Urinalysis Comment Microscopic not ind. Urine Opiates Screen NegativeNG/ML Urine Oxycodone Screen NegativeNG/ML Urine Methadone Screen NegativeNG/ML Urine Propoxyphene Screen NegativeNG/ML Urine Barbiturates Screen NegativeNG/ML Urine Tricyclic Antidepressants NegativeNG/ML Urine Phencyclidine Screen NegativeNG/ML Urine Amphetamines Screen PositiveNG/ML Urine Methamphetamines Screen NegativeNG/ML Urine Benzodiazepines Screen NegativeNG/ML Urine Cocaine Screen NegativeNG/ML Urine Cannabinoids Screen NegativeNG/ML Urine Drug Screen Confirmation Sent out Urine Drug Screen Information Pending Arterial Blood pH 7.450 Arterial Blood Partial Pressure CO2 41MMHG Arterial Blood pO2 at Patient Temp 93MMHG Arterial Blood HCO3 29MEQ/L Arterial Blood Total CO2 29.8MEQ/L Arterial Blood Oxygen Saturation 98.0% Arterial Blood Base Excess 4.1MMOL/L Oxygen Delivery Method (LAB) Room air Blood Gas Oxygen Liter Flow Blood Gas Oxygen Percent Given Blood Gas Vent Rate Blood Gas Tidal Volume ML Progress Progress Patient remains adamant during his emergency department stay that he did not ingest antifreeze. Patient's laboratory findings support the patient's story. Patient states he set a glass of antifreeze on the table at approximately 8 AM but did not ingest the anti-freeze. Patient is medically clear in the emergency department for further evaluation and treatment from a psychiatric facility. Patient is in agreement with the current plan of management. Risk versus benefit of transfer was discussed in detail with the patient and questions are answered. Patient is in agreement with the current plan of management. Patient is discussed with Robert Batista from [facility] and he and Dr. Loza will accept the patient to their service. Dr. wilfred Dozier Report is given. Patient is accepted. Patient will be transferred via secure transport to [facility]. Risk versus benefit of transfer is discussed in detail with the patient and family and questions are answered. Patient is in agreement with the current plan of management. [place] [employer] hold is in place. EKG EKG : Rate: 60-100 Rhythm: sinus [place]: normal QRS: normal Intervals: normal ST/T: normal Interpreted by: signing physician BETTYE HOOK DO July 15, 2016 12:37
--- NOTE | 2016-07-15 12:45 | NUR ---
STATUS RESTING QUIETLY IN ROOM.
--- NOTE | 2016-07-15 13:45 | NUR ---
PRARIE VIEW PRARIE VIEW SCREENER HERE TO VIST WITH PATIENT.
--- NOTE | 2016-07-15 14:05 | NUR ---
INTAKE PT. C/O FEELING HUNGRY. SANDWICH, PUDDING, CHIPS AND ORANGE JUICE TAKEN TO PT.
--- NOTE | 2016-07-15 14:23 | NUR ---
STATUS PT. CONTINUES TO BE COOL. ANOTHER BLANKET GIVEN. IN ROOM AND IS TEARFUL.
--- NOTE | 2016-07-15 14:36 | NUR ---
FAX PTS. CHART FAXED TO [facility].
--- NOTE | 2016-07-15 15:05 | NUR ---
STATUS [facility] REFUSED TO TAKE PATIENT. DR. HOOK CALLED BACK TO [facility] TO INFORM THEM OF THIS. CONTINUE TO [place]OOKE FOR PLACEMENT. PT. RESTING QUIETLY.
--- NOTE | 2016-07-15 16:25 | NUR ---
REPORT CALLED LAKIA LOMELI TO GIVE REPORT. NURSE WAS NOT AVAILABLE AND IS TO CALL BACK.
--- NOTE | 2016-07-15 16:30 | NUR ---
STATUS AWAKEND PT. TO SIGN TRANSFER FORM. WANTING HIS PERSONAL BELONGINGS BUT DECLINED THIS AT THIS TIME. SAID I WOULD LET [facility] DECIDE WHAT HE COULD HAVE.
--- NOTE | 2016-07-15 16:50 | NUR ---
REPORT REPORT GIVEN TO [facility].
--- NOTE | 2016-07-15 17:00 | NUR ---
[facility] [employer] CALLED FOR PT. TRANSFER TO [facility].
--- NOTE | 2016-07-15 17:10 | NUR ---
[facility] HERE TO TRANSFER PATIENT.
--- NOTE | 2016-07-15 17:14 | NUR ---
TRANSFER PT. LEFT ED PER AMBULANCE TO GO TO [facility] [place]. PTS. PERSONAL BELONGINGS (KNIFE, BILLFOLD, PHONE AND MEDICATIONS) GIVEN TO [facility] TO GIVE TO [facility] STAFF.
[2016-07-15 17:26] VITALS: BP 120/73; PULSE 90; RESP 18; TEMP 98.1; O2SAT 98
== END 2016-07-15 17:14 ==
LOC: ED 10:51
DX: R45.851 Suicidal ideations (principal); F31.81 Bipolar II disorder; F15.10 Other stimulant abuse, uncomplicated; Z79.899 Other long term (current) drug therapy
CPT/HCPCS: 36415; 80053; 80306; 80307; 81003; 82803; 85025; 93005